=== PATIENT | male | born 1955 | race Caucasian/White ===

== ENCOUNTER 2018-10-15 20:32 | Emergency (ER) | payer MEDICARE, OTHER ==
[~2018-10-15] VITALS: Ht 172.7 cm; Wt 92.5 kg
[2018-10-15 20:51] LABS: BASOPHILS ABSOLUTE AUTO 0.08 K/mm3 (0.00-0.23); BASOPHILS PERCENT AUTO 1 % (0-2); EOSINOPHILS ABSOLUTE AUTO 0.28 K/mm3 (0.00-0.68); EOSINOPHILS PERCENT AUTO 2 % (0-6); Hematocrit 33.6 % (37.0-53.0); Hemoglobin 11.6 g/dL (13.5-17.5); IMMATURE GRAN ABSOLUTE AUTO 0.05 K/mm3 (0.00-0.10); IMMATURE GRAN PERCENT AUTO 0 % (0-1); LYMPHOCYTES ABSOLUTE AUTO 2.23 K/mm3 (0.84-5.20); LYMPHOCYTES PERCENT AUTO 17 % (21-46); MONOCYTES ABSOLUTE AUTO 0.91 K/mm3 (0.16-1.47); MONOCYTES PERCENT AUTO 7 % (4-13); Mean Corpuscular HGB 29.9 pg (26.0-34.0); Mean Corpuscular HGB Conc 34.5 g/dL (31.5-36.5); Mean Corpuscular Volume 87 fL (80-100); Mean Platelet Volume 9.9 fL (9.1-12.4); NEUTROPHILS ABSOLUTE AUTO 9.25 K/mm3 (1.96-9.15); NEUTROPHILS PERCENT AUTO 72 % (41-73); Platelet Count 308 K/mm3 (150-400); RDW Coefficient Variation 11.9 % (11.7-14.2); RDW Standard Deviation 37.7 fL (35.1-46.3); Red Blood Cell Count 3.88 M/mm3 (4.30-5.90)
[2018-10-15 21:17] LABS: Alanine Aminotransfer (ALT/SGP 14 U/L (12-78); Alk Phos 75 U/L (50-136); Anion Gap 5 mmol/L (6-16); Aspartate Aminotrans (AST/SGOT 8 U/L (12-37); Bilirubin, Total 0.6 mg/dL (0.1-1.0); Blood Urea Nitrogen 10 mg/dL (8-24); Bun/Creatinine Ratio 8.8 (12.0-20.0); CO2, Blood 28 mmol/L (21-32); Calcium, Blood 8.2 mg/dL (8.5-10.1); Chloride, Blood 109 mmol/L (98-108); Creatinine, Blood 1.14 mg/dL (0.60-1.20); Ethanol (Alcohol), Blood, Med <3 mg/dL; Globulin, Blood 2.9 g/dL (2.2-4.0); Glomerular Filtration Rate >60 (60-); Glucose, Blood 124 mg/dL (70-99); Potassium, Blood 3.3 mmol/L (3.5-5.5); Sodium, Blood 142 mmol/L (136-145); Total Protein, Blood 5.9 g/dL (6.4-8.2)
[2018-10-15 21:55] LABS: International Normalized Ratio 1.03; Prothrombin Time Results 10.9 Sec (9.7-11.5)
== END 2018-10-15 23:05 | disposition short-term general hospital (02) ==
LOC: ER 20:32
PROVIDERS: Emergency Medicine
DX: S61.512A Laceration without foreign body of left wrist, initial encounter (principal); S11.91XA Laceration without foreign body of unspecified part of neck, initial encounter; S51.012A Laceration without foreign body of left elbow, initial encounter; X78.0XXA Intentional self-harm by sharp glass, initial encounter; Z91.030 Bee allergy status; Z88.0 Allergy status to penicillin; Z88.8 Allergy status to other drugs, medicaments and biological substances; Z88.1 Allergy status to other antibiotic agents
CPT/HCPCS: 36430; 70498; 71045; 73206; 80053; 85025; 85610; 85730; 86850; 86900; 86901; 86920; 86923; 90471; 90714; 96365-59; 96367; 96376-59; 99285-25; G0480; J0690; J0696; J7030; J7120; P9016; Q9967

== ENCOUNTER 2019-10-20 20:50 | Emergency (ER) | payer OTHER, MEDICARE ==
[~2019-10-20] VITALS: Ht 172.7 cm; Wt 81.7 kg
[2019-10-20 21:32] LABS: BASOPHILS ABSOLUTE AUTO 0.04 K/mm3 (0.00-0.23); BASOPHILS PERCENT AUTO 1 % (0-2); EOSINOPHILS ABSOLUTE AUTO 0.18 K/mm3 (0.00-0.68); EOSINOPHILS PERCENT AUTO 2 % (0-6); Hematocrit 37.3 % (37.0-53.0); Hemoglobin 12.7 g/dL (13.5-17.5); IMMATURE GRAN ABSOLUTE AUTO 0.02 K/mm3 (0.00-0.10); IMMATURE GRAN PERCENT AUTO 0 % (0-1); LYMPHOCYTES ABSOLUTE AUTO 2.02 K/mm3 (0.84-5.20); LYMPHOCYTES PERCENT AUTO 25 % (21-46); MONOCYTES ABSOLUTE AUTO 0.46 K/mm3 (0.16-1.47); MONOCYTES PERCENT AUTO 6 % (4-13); Mean Corpuscular Volume 88 fL (80-100); Mean Platelet Volume 9.4 fL (9.1-12.4); NEUTROPHILS ABSOLUTE AUTO 5.39 K/mm3 (1.96-9.15); NEUTROPHILS PERCENT AUTO 67 % (41-73); Platelet Count 247 K/mm3 (150-400); RDW Coefficient Variation 12.3 % (11.7-14.2); RDW Standard Deviation 39.8 fL (35.1-46.3); Red Blood Cell Count 4.23 M/mm3 (4.30-5.90); White Blood Cell Count 8.11 K/mm3 (4.00-11.30)
[2019-10-20] MEDS ORDERED: Isosorbide Dini30 MG PO (21:40)
[2019-10-20] MEDS ORDERED: CLON.1 PO (21:41)
[2019-10-20] MEDS ORDERED: TAMS.4ER PO (21:42)
[2019-10-20] MEDS ORDERED: Felodipine ER5 MG PO (21:42)
[2019-10-20] MEDS ORDERED: LEVSOD75 PO (21:42)
[2019-10-20] MEDS ORDERED: LITH300C PO (21:43)
[2019-10-20] MEDS ORDERED: HALO5 PO (21:43)
[2019-10-20] MEDS ORDERED: LACT PO (21:43)
[2019-10-20] MEDS ORDERED: QUET200 PO (21:44)
[2019-10-20] MEDS ORDERED: FINA5 PO (21:44)
[2019-10-20] MEDS ORDERED: Benztropine Mesy1 MG (21:44)
[2019-10-20 21:50] LABS: Alanine Aminotransfer (ALT/SGP 16 U/L (12-78); Albumin, Blood 3.5 g/dL (3.4-5.0); Albumin/Globulin Ratio 1.2 (0.8-1.8); Alk Phos 85 U/L (50-136); Anion Gap 7 mmol/L (6-16); Aspartate Aminotrans (AST/SGOT 16 U/L (12-37); Bilirubin, Total 0.7 mg/dL (0.1-1.0); Blood Urea Nitrogen 7 mg/dL (8-24); Bun/Creatinine Ratio 7.6 (12.0-20.0); CO2, Blood 25 mmol/L (21-32); Calcium, Blood 8.3 mg/dL (8.5-10.1); Chloride, Blood 102 mmol/L (98-108); Creatinine, Blood 0.93 mg/dL (0.60-1.20); Ethanol (Alcohol), Blood, Med <3 mg/dL; Globulin, Blood 2.9 g/dL (2.2-4.0); Glomerular Filtration Rate >60 (60-); Glucose, Blood 92 mg/dL (70-99); Potassium, Blood 3.3 mmol/L (3.5-5.5); Sodium, Blood 134 mmol/L (136-145); Total Protein, Blood 6.4 g/dL (6.4-8.2)
[2019-10-20 21:51] LABS: International Normalized Ratio 1.04; Prothrombin Time Results 11.1 Sec (9.7-11.5)
[2019-10-20 23:22] LABS: Source, Urine Clean Catch
[2019-10-20 23:35] LABS: Bilirubin, Urine Neg (Neg); Blood, Urine Neg (Neg); Glucose Qualitative, Urine Neg (Neg); Ketones, Urine Neg (Neg); Leukocyte Esterase, Urine Neg (Neg); Nitrite, Urine Neg (Neg); Protein, Urine Neg (Neg); Specific Gravity, Urine 1.005 (1.003-1.022); Urobilinogen, Urine NORM (Normal)
[2019-10-20 23:36] LABS: Appearance, Urine Clear (Clear); Color, Urine Pale Yellow (P-Yellow)
[2019-10-20 23:37] LABS: U Amphetamine Screen Not Detected; U Barbituate Screen Not Detected; U Benzodiazapine Screen Not Detected; U Buprenorphine Screen Not Detected; U Cannabinoids Screen Not Detected; U Cocaine Screen Not Detected; U Methadone Screen Not Detected; U Methamphetamine Screen Not Detected; U Opiates Screen Not Detected; U Oxycodone Screen Not Detected; U Phencyclidine Screen Not Detected; U Propoxyphene Screen Not Detected
== END 2019-10-21 00:10 | disposition home or self-care (01) ==
LOC: ER 20:50
PROVIDERS: Physician Assistant
DX: R41.82 Altered mental status, unspecified (principal); Z88.0 Allergy status to penicillin; Z91.030 Bee allergy status; Z88.8 Allergy status to other drugs, medicaments and biological substances; Z79.899 Other long term (current) drug therapy; E11.40 Type 2 diabetes mellitus with diabetic neuropathy, unspecified; Z87.891 Personal history of nicotine dependence
CPT/HCPCS: 70450; 80053; 81003; 82947; 84484; 85025; 85610; 93005; 93010; 96360; 99285-25; G0480; J7030

== ENCOUNTER 2020-03-21 14:21 | Emergency (ER) | payer OTHER, MEDICARE ==
[~2020-03-21] VITALS: Ht 172.7 cm; Wt 74.8 kg
[~2020-03-21 14:21] MED LIST: Benztropine Mesy1 MG PO; CLON.1 PO; Felodipine ER5 MG PO; HALO5 PO; LITH300C PO; QUETIAPINE FUM400 M2 PO; TAMS.4ER PO
[2020-03-21] MEDS ORDERED: ZYRTEC10 M2 PO (14:42)
[2020-03-21] MEDS ORDERED: DOXEPIN HCL100 M1 PO (14:43)
[2020-03-21] MEDS ORDERED: HYDHCL25 PO (14:50)
[2020-03-21] MEDS ORDERED: Methocarbamol500 MG PO (14:51)
[2020-03-21] MEDS ORDERED: PSEUDOEPHEDRINE30 M1 PO (14:51)
[2020-03-21] MEDS ORDERED: Sulindac200 MG PO (14:52)
[2020-03-21 15:49] LABS: Source, Urine Catheter
[2020-03-21 15:52] LABS: Appearance, Urine Cloudy (Clear); Bilirubin, Urine Neg (Neg); Blood, Urine 4+ (Neg); Color, Urine Yellow (P-Yellow); Glucose Qualitative, Urine Neg (Neg); Ketones, Urine 1+ (Neg); Leukocyte Esterase, Urine 2+ (Neg); Nitrite, Urine Neg (Neg); Protein, Urine 3+ (Neg); Specific Gravity, Urine 1.015 (1.003-1.022); Urobilinogen, Urine 1+ (Normal)
[2020-03-21 16:20] LABS: Amorphous Heavy (0-Heavy); Bacteria Mod /hpf; Squamous Epithelial Cells Rare /hpf (Few)
== END 2020-03-21 16:37 | disposition home or self-care (01) ==
LOC: ER 14:21
PROVIDERS: Physician Assistant
DX: T83.84XA Pain due to genitourinary prosthetic devices, implants and grafts, initial encounter (principal); E11.40 Type 2 diabetes mellitus with diabetic neuropathy, unspecified; N40.0 Benign prostatic hyperplasia without lower urinary tract symptoms; E03.9 Hypothyroidism, unspecified; J45.909 Unspecified asthma, uncomplicated; F17.200 Nicotine dependence, unspecified, uncomplicated; Z79.899 Other long term (current) drug therapy
CPT/HCPCS: 81001; 87086; 99283-25

== ENCOUNTER 2020-04-07 09:54 | Inpatient (IN) | payer OTHER, MEDICARE ==
[~2020-04-07] VITALS: Ht 170.2 cm; Wt 77.1 kg
[~2020-04-07 09:54] MED LIST changes: +DOXEPIN HCL100 M1 PO; +HYDHCL25 PO; +Methocarbamol500 MG PO; +PSEUDOEPHEDRINE30 M1 PO; +Sulindac200 MG PO; +ZYRTEC10 M2 PO
[2020-04-07] MEDS ORDERED: LAMO100 PO (10:57)
[2020-04-07 10:59] LABS: BASOPHILS ABSOLUTE AUTO 0.04 K/mm3 (0.00-0.23); BASOPHILS PERCENT AUTO 1 % (0-2); EOSINOPHILS ABSOLUTE AUTO 0.18 K/mm3 (0.00-0.68); EOSINOPHILS PERCENT AUTO 2 % (0-6); Hematocrit 39.8 % (37.0-53.0); Hemoglobin 13.2 g/dL (13.5-17.5); IMMATURE GRAN ABSOLUTE AUTO 0.07 K/mm3 (0.00-0.10); IMMATURE GRAN PERCENT AUTO 1 % (0-1); LYMPHOCYTES ABSOLUTE AUTO 1.37 K/mm3 (0.84-5.20); LYMPHOCYTES PERCENT AUTO 16 % (21-46); MONOCYTES ABSOLUTE AUTO 0.54 K/mm3 (0.16-1.47); MONOCYTES PERCENT AUTO 6 % (4-13); Mean Corpuscular HGB 30.2 pg (26.0-34.0); Mean Corpuscular HGB Conc 33.2 g/dL (31.5-36.5); Mean Corpuscular Volume 91 fL (80-100); Mean Platelet Volume 9.7 fL (9.1-12.4); NEUTROPHILS ABSOLUTE AUTO 6.26 K/mm3 (1.96-9.15); NEUTROPHILS PERCENT AUTO 74 % (41-73); Platelet Count 292 K/mm3 (150-400); RDW Coefficient Variation 11.8 % (11.7-14.2); RDW Standard Deviation 40.1 fL (35.1-46.3); Red Blood Cell Count 4.37 M/mm3 (4.30-5.90); White Blood Cell Count 8.46 K/mm3 (4.00-11.30)
[2020-04-07 11:13] LABS: Alanine Aminotransfer (ALT/SGP 15 U/L (12-78); Albumin, Blood 3.3 g/dL (3.4-5.0); Albumin/Globulin Ratio 0.8 (0.8-1.8); Alk Phos 103 U/L (50-136); Anion Gap 7 mmol/L (6-16); Aspartate Aminotrans (AST/SGOT 7 U/L (12-37); Bilirubin, Total 0.4 mg/dL (0.1-1.0); Blood Urea Nitrogen 10 mg/dL (8-24); Bun/Creatinine Ratio 10.8 (12.0-20.0); CO2, Blood 26 mmol/L (21-32); Calcium, Blood 8.9 mg/dL (8.5-10.1); Chloride, Blood 108 mmol/L (98-108); Creatinine, Blood 0.93 mg/dL (0.60-1.20); Ethanol (Alcohol), Blood, Med <3 mg/dL; Glomerular Filtration Rate >60 (60-); Glucose, Blood 148 mg/dL (70-99); Potassium, Blood 3.5 mmol/L (3.5-5.5); Sodium, Blood 141 mmol/L (136-145); Total Protein, Blood 7.3 g/dL (6.4-8.2)
[2020-04-07 11:58] LABS: Lithium 0.78 mmol/L (0.60-1.20)
[2020-04-07 12:02] LABS: Free Thyroxine 1.49 ng/dL (0.70-1.60); Thyroid Stimulating Hormone 1.04 uIU/mL (0.360-4.800)
[2020-04-07 12:16] LABS: Source, Urine Clean Catch
[2020-04-07 12:32] LABS: Appearance, Urine Hazy (Clear); Bilirubin, Urine Neg (Neg); Blood, Urine 3+ (Neg); Color, Urine Yellow (P-Yellow); Glucose Qualitative, Urine Neg (Neg); Ketones, Urine Neg (Neg); Leukocyte Esterase, Urine 3+ (Neg); Nitrite, Urine Neg (Neg); Protein, Urine 3+ (Neg); Urobilinogen, Urine NORM (Normal)
[2020-04-07 12:47] LABS: White Blood Cells, Urine TNTC /hpf (0-5)
[2020-04-07 12:48] LABS: Bacteria Many /hpf; Squamous Epithelial Cells Few /hpf (Few); Transitional Epithelial Cells Few /hpf (0-Rare)
[2020-04-07 12:56] LABS: U Amphetamine Screen Not Detected; U Barbituate Screen Not Detected; U Benzodiazapine Screen Not Detected; U Buprenorphine Screen Not Detected; U Cannabinoids Screen Not Detected; U Cocaine Screen Not Detected; U Methadone Screen Not Detected; U Methamphetamine Screen Not Detected; U Opiates Screen Not Detected; U Oxycodone Screen Not Detected; U Phencyclidine Screen Not Detected; U Propoxyphene Screen Not Detected
[2020-04-07 13:52] LABS: Influenza A, PCR Negative (NEGATIVE); Influenza B, PCR Negative (NEGATIVE); Resp Syncytial Virus, PCR Negative (NEGATIVE); SARS-Cov-2 (COVID-19) PCR, MMC Negative (NEGATIVE)
[2020-04-07] MEDS ORDERED: LACT PO (14:10)
[2020-04-07] MEDS ORDERED: MELA3 PO (14:11)
--- NOTE | 2020-04-07 18:54 | NUR ---
ASSUMED CARE, END OF SHIFT PT ARRIVED TO PCU FROM ER AT APPROXIMATELY 1730. PT IS UNRESPONSIVE, PUPILS DILATED SOME NYSTAGMUS. PT WAS ADMITTED FOR DRUG OVERDOSE AND IS CURRENTLY IN AN SI PREPPED ROOM WITH A SITTER. PT HAS BICARB WITH K+ AND DEXTROSE RUNNING AT 125ML/HR PER ER REPORT AND RECOMMENDATION ON POISON CONTROL. PT VOMITTED SOON AFTER ARRIVING TO PCU AND A NEW IV WAS STARTED IN THE RIGHT UPPER ARM TO ALLOW FOR A PHENERGRAN INFUSION. PT IS UNABLE TO ANSWER QUESTIONS REGARDING HEALTH HISTORY, HOME MED REC WAS COMPLETED BASED ON A LIST PROVIDED BY EMPLOYEES AT HIS [employer] ROOM AND BOARD. PT IS VERY RIGID, VS STABLE, PT ON RA. PT HAS CHRONIC DELUCA THAT WAS REPLACED IN ED AND IS DRAINING CLEAR/YELLOW URINE
--- NOTE | 2020-04-07 23:14 | NUR ---
POISON CONTROL POISON CALLED AT APPROX 2240 REQUESTING PT UPDATE. NOTIFIED POISON CONTROL BICARB INFUSION WAS ORDERED ONE TIME BAG. POISON CONTROL RECOMMENDED CONTINUOUS INFUSION UNTIL MORNING D/T WIDENING QRS W/ EKG IN THE AM WITH INFUSION RUNNING TO DETERMINE IF READY TO D/C. POISON CONTROL ALSO RECOMMENDED LABS DRAWN (VBG, ACETAMINOPHEN, ASPIRIN). CALL PLACED TO MAYRA DUPONT AT APPROX 2300. MAYRA DUPONT W/ ORDERS FOR EKG NOW TO DETERMINE WHETHER TO RESTART BICARB DRIP, WELL ACETAMINOPHEN LAB AND ASPIRIN LABS TO BE DRAWN.
--- NOTE | 2020-04-07 23:45 | NUR ---
PT UPDATE PT EKG DONE, SHOWED QRS OF 98 MS. NOTIFIED MAYRA MCGEE OF RESULTS. MAYRA MCGEE W/ ORDERS FOR NS INFUSION AND EKG IN AM. MAYRA MCGEE ALSO WITH ORDERS FOR CK LAB PER POISON CONTROL RECOMMENDATION. MAYRA MCGEE REQUESTED THIS RN TO NOTIFY POISON CONTROL THAT BICARB DRIP WAS D/C AND IF THEY STILL RECOMMEND VBG LAB FOR PH LEVEL. CALL PLACED TO POISON CONTROL AT 2345, DORENE, WHO WAS ON ANOTHER LINE AND WILL RETURN CALL.
[2020-04-07 23:54] LABS: Salicylate 3.5 mg/dL (2.8-20.0)
[2020-04-07 23:56] LABS: Acetaminophen, Random <2.0 ug/mL (10.0-30.0)
[2020-04-08 00:08] LABS: CPK Creatine Kinase 50 U/L (39-308)
[2020-04-08 00:10] LABS: Creatine Kinase MB <1.0 ng/mL (0.0-3.6); Creatine Kinase MB Index Unable to Calculate (0.0-4.0)
--- NOTE | 2020-04-08 02:11 | NUR ---
PT UPDATE DORENE FROM POISON CONTROL CALLED. NOTIFIED DORENE OF EKG RESULTS. POISON CONTROL DID NOT RECOMMENED A VBG LAB. THEY DID RECOMMENED A REPEAT EKG IN AM WELL A REPEAT ASPIRIN LEVEL LAB IN AM.
[2020-04-08 04:20] LABS: BASOPHILS ABSOLUTE AUTO 0.03 K/mm3 (0.00-0.23); BASOPHILS PERCENT AUTO 0 % (0-2); EOSINOPHILS ABSOLUTE AUTO 0.04 K/mm3 (0.00-0.68); EOSINOPHILS PERCENT AUTO 0 % (0-6); Hematocrit 40.6 % (37.0-53.0); Hemoglobin 13.4 g/dL (13.5-17.5); IMMATURE GRAN ABSOLUTE AUTO 0.04 K/mm3 (0.00-0.10); IMMATURE GRAN PERCENT AUTO 0 % (0-1); LYMPHOCYTES ABSOLUTE AUTO 0.87 K/mm3 (0.84-5.20); LYMPHOCYTES PERCENT AUTO 8 % (21-46); MONOCYTES ABSOLUTE AUTO 0.75 K/mm3 (0.16-1.47); MONOCYTES PERCENT AUTO 7 % (4-13); Mean Corpuscular HGB 29.6 pg (26.0-34.0); Mean Corpuscular Volume 90 fL (80-100); Mean Platelet Volume 9.4 fL (9.1-12.4); NEUTROPHILS ABSOLUTE AUTO 9.12 K/mm3 (1.96-9.15); NEUTROPHILS PERCENT AUTO 84 % (41-73); Platelet Count 318 K/mm3 (150-400); RDW Coefficient Variation 11.7 % (11.7-14.2); RDW Standard Deviation 38.8 fL (35.1-46.3); Red Blood Cell Count 4.52 M/mm3 (4.30-5.90); White Blood Cell Count 10.85 K/mm3 (4.00-11.30)
[2020-04-08 04:55] LABS: Alanine Aminotransfer (ALT/SGP 15 U/L (12-78); Albumin, Blood 3.3 g/dL (3.4-5.0); Albumin/Globulin Ratio 0.8 (0.8-1.8); Alk Phos 108 U/L (50-136); Anion Gap 4 mmol/L (6-16); Aspartate Aminotrans (AST/SGOT 9 U/L (12-37); Bilirubin, Total 0.6 mg/dL (0.1-1.0); Blood Urea Nitrogen 6 mg/dL (8-24); Bun/Creatinine Ratio 7.1 (12.0-20.0); CO2, Blood 30 mmol/L (21-32); Calcium, Blood 9.2 mg/dL (8.5-10.1); Chloride, Blood 111 mmol/L (98-108); Creatinine, Blood 0.85 mg/dL (0.60-1.20); Globulin, Blood 4.2 g/dL (2.2-4.0); Glomerular Filtration Rate >60 (60-); Glucose, Blood 107 mg/dL (70-99); Potassium, Blood 3.7 mmol/L (3.5-5.5); Sodium, Blood 145 mmol/L (136-145); Total Protein, Blood 7.5 g/dL (6.4-8.2)
--- NOTE | 2020-04-08 05:55 | NUR ---
SHIFT SUMMARY PT ALERT, AGITATED THIS SHIFT. DOES NOT FOLLOW COMMANDS OR VERBALLY COMMUNICATE. PT WAS ABLE TO SQUEEZE FINGERS W/ BOTH HANDS SPONTANEOUSLY. SP02>92% ON RA. TELEMETRY READS SR, HR 70'S. DELUCA CATHETER DRAINING TO GRAVITY. PT PULLED AT CORDS MULTIPLE TIMES DURING SHIFT, TELE CORDS, SP02 CORDS, DELUCA CATHETER. MEDICATED W/ ATIVAN X3 THIS SHIFT. SITTER IN ROOM, VOCERED FOR NURSES MULTIPLE TIMES DURING SHIFT D/T PT BEING AGITATED, MOVING AROUND IN BED, HANGING LEGS OVER RAILS, PULLING AT CORDS. REPOSITIONED PT AT PUT CALMING MUSIC ON TV, SEEMED TO HELP PT SOME. WILL GIVE REPORT TO ONCOMING SHIFT.
--- NOTE | 2020-04-08 08:01 | NUR ---
PT WITH AMS, DOES NOT RESPOND MEANINGFULLY, PT IS EDUCATED REGARDLESS OF ABILITY TO PARTICIPATE. PT LOOKS TO VERBAL STIMULI WHEN SPOKEN TO BUT DOES NOT INTERACT.
--- NOTE | 2020-04-08 10:04 | NUR ---
UNABLE TO PEFORM BEDISDE SWALLOW STUDY PT WAS UNABLE TO SWALLOW LIQUID FROM THE ORAL SWABS, PT WILLNOT BE ABLE TO PROTECT HIS AIRWAY TO ADMINISTER PO MEDICATIONS
--- NOTE | 2020-04-08 18:14 | NUR ---
SHIFT NOTE PT WITH CONTINUOUS SITTER AND CAMERA MONITORING. PT WITH AMS, RESPONDS WITH PURPOSEFUL ANSWERS THAT ARE GROSSLY GARBLED. PERRLA, SLUGGISH REACTION, PUPILS 6MM. PT WITH SPASTIC MOVEMENTS, WEAK IN ALL EXTREMETIES. DR PASTRANA HAS BEEN IN TO SEE THE PT TODAY WAS NOT ABLE TO EVALUATE. POISON CONTROL IS UPDATED T/O THE DAY.
--- NOTE | 2020-04-08 20:06 | NUR ---
UPDATE VERIFIED WITH REMOTE MONITORING THAT CAMERA IS ON IN ROOM. SITTER AT BEDSIDE.
[2020-04-09 04:01] LABS: Alanine Aminotransfer (ALT/SGP 15 U/L (12-78); Albumin, Blood 3.3 g/dL (3.4-5.0); Albumin/Globulin Ratio 0.8 (0.8-1.8); Alk Phos 108 U/L (50-136); Anion Gap 6 mmol/L (6-16); Aspartate Aminotrans (AST/SGOT 15 U/L (12-37); Bilirubin, Total 0.4 mg/dL (0.1-1.0); Blood Urea Nitrogen 10 mg/dL (8-24); Bun/Creatinine Ratio 9.5 (12.0-20.0); CO2, Blood 28 mmol/L (21-32); Calcium, Blood 9.3 mg/dL (8.5-10.1); Chloride, Blood 116 mmol/L (98-108); Creatinine, Blood 1.05 mg/dL (0.60-1.20); Globulin, Blood 3.9 g/dL (2.2-4.0); Glomerular Filtration Rate >60 (60-); Glucose, Blood 82 mg/dL (70-99); Potassium, Blood 3.9 mmol/L (3.5-5.5); Sodium, Blood 150 mmol/L (136-145); Total Protein, Blood 7.2 g/dL (6.4-8.2)
--- NOTE | 2020-04-09 07:43 | NUR ---
SHIFT SUMMARY PATIENT NON-VERBAL THROUGHOUT THE NIGHT. HOWEVER, PATIENT DID GRUNT OCCATIONALLY WHEN BEING SPOKEN TOO. PATIENT ALSO SWUNG HIS ARM WITH HIS WRISTBAND ON IT TWARDS STAFF WHEN THEY STATED THEY WERE GOING TO SCAN HIS WRISTBAND, IN WHAT APPEARED TO BE AN ATTEMPT AT MOVING HIS ARM TWARDS STAFF TO HELP THEM SCAN HIS WRISTBAND. PATIENT WOULD ALSO MAKE EYE CONTACT WHEN BEING SPOKEN TOO AT TIMES. PATIENT MEDICATED FOR RESTLESSNESS AND SOME AGITATION PER EMAR. PATIENT'S ARMS AND LEGS APPEARED TO HAVE FREQUENT SPASTIC MOVMENTS. ORAL CARE PROVIDED SEVERAL TIMES TO PATIENT. PATIENT TURNED FREQUENTLY, ONE TO ONE SITTER IN ROOM THROUGHOUT THE NIGHT, CAMERA ON IN ROOM. PATIENT APPEARED TO NAP OCCATIONALLY LAST NIGHT. REPORT GIVEN TO ONCOMING RN.
--- NOTE | 2020-04-09 10:53 | NUR ---
No Safety Plan completed yet. Visited patient at 1000 this morning. He is not oriented or communicating verbally and unable to participate in an interview. Melinda Holguin M.Ed., [facility], Behavior Health Director
--- NOTE | 2020-04-09 18:05 | NUR ---
SHIFT NOTE THIS EVENING PT BEGAN WITH FEVER OF 100.5, TREATED WITH TYLENOL DC, TEMP CONTINUED TO CLIMB INTO 101s DESPITE TYLENOL ADMINISTRATION. PT BEGN TO HAVE TWITCHING OF JAW AT THE TIME THAT FEVER BEGAN, PT WAS GIVEN ATIVAN 2MG IVP WITH NO RESOLUTION OF JAW TWITCHING. DR BERGERON CALLED WITH CONCERNS, NEW ORDERS OBTAINED FOR ROCEPHIN, BLOOD AND URINE CULTURES. BLOOD AND URINE SENT TO LAB. AWAITING ROCEPHIN FROM PHARMACY. AT THE TIME OF THIS NOTE PT'S TEMP 99.4 PER RECTAL TEMP
--- NOTE | 2020-04-09 20:23 | NUR ---
CAMERA ON VERIFIED WITH REMOTE MONITORING THAT CAMERA IS ON IN PCU 8.
--- NOTE | 2020-04-10 01:48 | NUR ---
SUICIDE REASSESSMENT UPDATE SUICIDE REASSESSMENT CONTINUES TO PLACE PATIENT IN THE HIGH RISK CATEGORY. HOWEVER, PATIENT HAS BEEN EVALUATED BY DR PASTRANA WHO DETERMINED THE PATIENT TO BE A MODERATE RISK DUE TO PATIENTS CURRENT CAPABILITIES AND INABILITY TO TO CONTROL HIS MOVEMENTS WELL AT THIS TIME. AN ORDER FOR MODERATE RISK CURRENTLY IN PATIENTS CHART. REMOTE MONITORING CONTINUOUSLY OBSERVING PATIENT VIA THE CAMERA IN ROOM. PATIENT BEING FREQUENTLY ROUNDED ON BY STAFF.
[2020-04-10 04:24] LABS: BASOPHILS ABSOLUTE AUTO 0.05 K/mm3 (0.00-0.23); BASOPHILS PERCENT AUTO 1 % (0-2); EOSINOPHILS ABSOLUTE AUTO 0.19 K/mm3 (0.00-0.68); EOSINOPHILS PERCENT AUTO 2 % (0-6); Hematocrit 40.9 % (37.0-53.0); IMMATURE GRAN ABSOLUTE AUTO 0.02 K/mm3 (0.00-0.10); IMMATURE GRAN PERCENT AUTO 0 % (0-1); LYMPHOCYTES ABSOLUTE AUTO 1.45 K/mm3 (0.84-5.20); LYMPHOCYTES PERCENT AUTO 18 % (21-46); MONOCYTES ABSOLUTE AUTO 0.66 K/mm3 (0.16-1.47); MONOCYTES PERCENT AUTO 8 % (4-13); Mean Corpuscular HGB 29.6 pg (26.0-34.0); Mean Corpuscular HGB Conc 31.8 g/dL (31.5-36.5); Mean Corpuscular Volume 93 fL (80-100); Mean Platelet Volume 9.3 fL (9.1-12.4); NEUTROPHILS ABSOLUTE AUTO 5.66 K/mm3 (1.96-9.15); NEUTROPHILS PERCENT AUTO 71 % (41-73); Platelet Count 305 K/mm3 (150-400); RDW Coefficient Variation 11.7 % (11.7-14.2); RDW Standard Deviation 39.9 fL (35.1-46.3); Red Blood Cell Count 4.39 M/mm3 (4.30-5.90); White Blood Cell Count 8.03 K/mm3 (4.00-11.30)
[2020-04-10 04:47] LABS: Alanine Aminotransfer (ALT/SGP 15 U/L (12-78); Albumin, Blood 3.1 g/dL (3.4-5.0); Albumin/Globulin Ratio 0.8 (0.8-1.8); Alk Phos 105 U/L (50-136); Anion Gap 7 mmol/L (6-16); Aspartate Aminotrans (AST/SGOT 23 U/L (12-37); Bilirubin, Total 0.5 mg/dL (0.1-1.0); Blood Urea Nitrogen 15 mg/dL (8-24); Bun/Creatinine Ratio 16.2 (12.0-20.0); CO2, Blood 27 mmol/L (21-32); Calcium, Blood 9.3 mg/dL (8.5-10.1); Chloride, Blood 115 mmol/L (98-108); Creatinine, Blood 0.93 mg/dL (0.60-1.20); Globulin, Blood 4.1 g/dL (2.2-4.0); Glomerular Filtration Rate >60 (60-); Glucose, Blood 86 mg/dL (70-99); Potassium, Blood 3.5 mmol/L (3.5-5.5); Sodium, Blood 149 mmol/L (136-145); Total Protein, Blood 7.2 g/dL (6.4-8.2)
--- NOTE | 2020-04-10 07:48 | NUR ---
SHIFT SUMMARY PATIENT APPEARED TO SLEEP WELL THROUGHOUT THE FIRST HALF OF THE NIGHT. PATIENT THEN STARTED TO BECOME MORE AGITATED. PATIENT ALSO STARTED PULLING AT IV LINES AND TELE EVEN AFTER ATTEMPTS WERE MADE TO HIDE LINES. PATIENT MEDICATED FOR AGITATION PER EMAR. PATIENT APPEARED TO BE ABLE TO MOVE SELF ABOUT IN BED WELL, TURNNING SELF FREQUENTLY IN BED. PATIENT MORE VERBAL THIS MORNING, PATIENT STATED "YES" MANY TIMES, HOWEVER PATIENT DID NOT ALWAYS APPEAR TO BE ANSWERING APPROPRIATELY. PATIENT CONTINUES TO BE AWAKE AND FIDGETY THIS MORNING. IV FLUIDS GIVEN PER EMAR. REPORT GIVEN TO ONCOMING RN.
--- NOTE | 2020-04-10 19:00 | NUR ---
SHIFT NOTE PT HAS BEEN MORE ALERT AND RESPONSIVE THIS SHIFT. DOES ANSWER WITH 2 WORD SENTENCES SEVERAL TIMES TODAY. PT'S SISTER ANGELITA WAS UPDATED ON PROGRESS. PT ALERT, AWAKENS EASILY TO VERBAL STIMULI. VSS. EVEN CHEMBG WAS 67 DR BERGERON CALLED FOR D5% c 1/2 NS c 20KCL ORDERED WHICH IS INFUSING AT 75ML/HR AT THIS TIME. NADN. PT REMAINS ON CAMERA MONITORING.
--- NOTE | 2020-04-10 22:46 | NUR ---
ASSUMED CARE OF PATIENT AT APPROXIMATELY 1915 FROM DARRION Lott RN. PATIENT ALERT AT TIMES AND LETHARGIC AT TIMES. PATIENT ANSWERS YES OR NO TO SOME QUESTIONS; FOLLOWS COMMANDS AT TIMES; MODERATE SI PRECAUTIONS IN PLACE; PATIENT FALL RISK. PATIENT DENIES PAIN, DIZZINESS OR NAUSEA. PATIENT GRABS URINARY CATHETER AT TIMES. NSR ON TELE; OXYGEN SATURATION ABOVE 90% ON ROOM AIR. IVF INFUSING PER ORDER. CAMERA IN ROOM OBSERVING PATIENT. PATIENT CURRENTLY RESTING IN BED; CALL LIGHT IN REACH; BED IN LOWEST POSISTION; BED ALARM ON.
[2020-04-11 04:29] LABS: Anion Gap 5 mmol/L (6-16); Blood Urea Nitrogen 18 mg/dL (8-24); Bun/Creatinine Ratio 20.2 (12.0-20.0); CO2, Blood 29 mmol/L (21-32); Calcium, Blood 9.3 mg/dL (8.5-10.1); Chloride, Blood 115 mmol/L (98-108); Creatinine, Blood 0.89 mg/dL (0.60-1.20); Glomerular Filtration Rate >60 (60-); Glucose, Blood 83 mg/dL (70-99); Potassium, Blood 3.3 mmol/L (3.5-5.5); Sodium, Blood 149 mmol/L (136-145)
--- NOTE | 2020-04-11 06:30 | NUR ---
PATIENT SLEPT ABOUT SIX HOURS LAST NIGHT. VSS. AGITATED T/O NIGHT;
--- NOTE | 2020-04-11 10:41 | NUR ---
PT ALERT TO SELF ONLY ABLE TO STATE NAME AND , MUMBLES WHEN TALKING, CONFUSED AND AGITATED WITH MULTIPLE ATTEMPTS OF TRYING TO GET OUT OF BED ATIVAN 2MG X1 DOSE GIVEN AND HALDOL PO 5MG, NOT YET EFFECTIVE AT THIS TIME, PT WAS ASSISTED TO RECLINER WITH VARUN VEST ON STILL ATTEMPTING TO STAND AND GET OUT OF THE CHAIR, DR BERGERON WAS IN PT ROOM AWARE OF PT'S CURRENT SITUATION. NOTICE SOME HALLUCINATIONS PT WAS TRYING TO FEED HIMSELF WITH ANYTHING THAT HE HOLDS, DIET RESTARTED TODAY FULL LIQUID PT WAS ABLE TO TOLERATE THIN LIQUIDS WITHOUT ASPIRATING AND APPLESAUCE. PT CONTINUES ON CAMERA MONITORING, FREQUENT ROOM CHECKS, CHAIR ALARM ON. WILL CONTINUE TO MONITOR PT UNTIL END OF SHIFT OR IF ANYTHING CHANGES.
--- NOTE | 2020-04-11 18:49 | NUR ---
PT SUMMARY: SEE PREVIOUS NOTES: PT REMAINS ON VARUN VEST, STILL CONFUSED AND IS ATTEMPTING TO GET OUT OF BED, NON REDIRECTABLE. VITALS HAS BEE STABLE, REMAINS ON CAMERA MONITORING, BED ALARM ON FOR SAFETY. TPN STARTED TODAY AT 96MLS/HR, D51/4NS WITH 20,MEQ K DC'D. PT WAS UP IN THE RECLINER AT LUNCH TIME, WAS GIVEN X2 DOSE OF ATIVAN 2MG AND 5MG HALDOL. PT WAS ABLE TO DRINK A BOX OF GLUCERNA AND 25% ON HIS DINNER, ALSO HAD AN EXTRA LARGE HARD BM FELT A LOT BETTER AFTER. NO OTHER ISSUES ENCOUNTERED FOR THE SHIFT, AWAITING FOR DR PASCUAL TO RE-EVALUATE PT SINCE HE'S MORE ALERT COMPARE TO YESTERDAY. PT NOW RESTING IN BED CALL LIGHTS IN REACH WILL MONIOR UNTIL END OF SHIFT
--- NOTE | 2020-04-12 04:15 | NUR ---
SHIFT SUMMARY PT HAS IMPROVED SIGNIFICANTLY OVERNIGHT. PT SLEPT FOR A GOOD PORTION OF THE SHIFT. VARUN VEST REMOVED PT WAS COOOPERATIVE WITH CARE AND NO LONGER ATTEMPTING TO GET OOB. PT VERY LETHARGIC AT THE START OF THE SHIFT, AWAKING TO VERBAL STIMULI BUT QUICKLY FALLING BACK TO SLEEP. PT IS AWAKE AND ALERT THIS MORNING, HE IS ANSWERING MOST OF MY QUESTIONS APPROPRIATELY, AND MAKING EYE CONTACT. HYPERTENSIVE, BUT WITHIN PT TRENDING SINCE ADMISSION. NO COVERAGE WITH HYDRALYZINE WITH PARAMETERS SET. CALL LIGHT WITHIN REACH. PT INSTRUCTED AGAIN ON USE. BED IN LOWEST POSITION, BED ALARM IN PLACE.
[2020-04-12 04:39] LABS: Anion Gap 4 mmol/L (6-16); Blood Urea Nitrogen 20 mg/dL (8-24); Bun/Creatinine Ratio 25.5 (12.0-20.0); CO2, Blood 30 mmol/L (21-32); Chloride, Blood 112 mmol/L (98-108); Creatinine, Blood 0.79 mg/dL (0.60-1.20); Glomerular Filtration Rate >60 (60-); Glucose, Blood 87 mg/dL (70-99); Magnesium, Blood 2.3 mg/dL (1.6-2.4); Phosphorus, Blood 3.9 mg/dL (2.5-4.9); Potassium, Blood 3.4 mmol/L (3.5-5.5); Sodium, Blood 146 mmol/L (136-145); Triglycerides 108 mg/dL (30-160)
--- NOTE | 2020-04-12 17:41 | NUR ---
PT SUMMARY: PT WAS MORE ALERT AND ORIENTED AT BASELINE TODAY, CONVERSIVE AND TALKING TO STAFF, PT DOES NOT RECALL HIS STAY IN THE HOSPITAL FOR [place] LAST 5 DAYS BUT REMEMBERS THAT HE TOOK [facility] AND AMBULANCE TOOK HIM IN THE HOSPITAL, PT STATED HE FELT KIND OF ALONE AND MISSES FAMILY IN [place], PT HAS HX OF SUICIDE ATTEMPTS IN THE PAST. PT STATED IT WAS SELFISH OF HIM AND IS NOT THINKING OF DOING ANY HARM OR SUICIDE AT THIS TIME. PT STILL AT MOD RISK FOR SI, WILL RE-EVALUATE TOMORROW BY DR PASCUAL. PT HAS BEEN GETTING UP TO BSC 1PA, FEELS WEAK/WOBBLY PT/OT ORDERED, CHAIR/BED ALARM ON FOR SAFETY PT WAS INSTRUCTED TO USE CALL LIGHTS FOR HELP, PT HAS BEEN COOPERATIVE. PT REMAINS ON CAMERA MONITORING, REQUESTED TO MAKE PHONE CALL AND TALK TO HER SISTER ANGELITA 5 MINS SUPERVISED PHONE CALL WAS DONE FOR THE SHIFT OKAY PER CHARGE NURSE. PT DIET WAS RESUMED TO REGULAR, PT HAS BEEN EATING WITHOUT ANY ISSUES, TPN DC'D FOR THE SHIFT, PT IN BED EATING DINNER CALL LIGHTS IN REACH, WILL MONITOR UNTIL END OF SHIFT
--- NOTE | 2020-04-13 04:54 | NUR ---
SHIFT SUMMARY PATIENT IS ALERT, ORIENTED AND COOPERATIVE WITH CARE. PATIENT SITTING UP IN RECLINER AT BEGINNING OF SHIFT AND IS A 1 PERSON TRANSFER TO BSC AND INTO BED. REPOSITONS SELF WELL IN BED. PATIENT ON MODERATE RISK FOR SI, PATIENT STATED HE DID NOT HAVE ANY THOUGHTS ABOUT HURTING HIMSELF. PATIENT ALSO STATED HE STILL FEELS WEAK AND LOOKS FORWARD TO WORKING WITH PT/OT TODAY. PATIENT SLEPT MOST THE NIGHT, SAT UP IN BED TO EAT JELLO AT ONE POINT. PATIENT IS ON CAMERA. VSS, NO ACUTE CHANGES. CALL LIGHT IN REACH.
[2020-04-13 05:38] LABS: Anion Gap 7 mmol/L (6-16); Blood Urea Nitrogen 15 mg/dL (8-24); Bun/Creatinine Ratio 19.3 (12.0-20.0); CO2, Blood 27 mmol/L (21-32); Calcium, Blood 8.4 mg/dL (8.5-10.1); Chloride, Blood 106 mmol/L (98-108); Creatinine, Blood 0.78 mg/dL (0.60-1.20); Glomerular Filtration Rate >60 (60-); Glucose, Blood 96 mg/dL (70-99); Magnesium, Blood 1.9 mg/dL (1.6-2.4); Phosphorus, Blood 3.5 mg/dL (2.5-4.9); Potassium, Blood 3.2 mmol/L (3.5-5.5); Sodium, Blood 140 mmol/L (136-145)
--- NOTE | 2020-04-13 17:10 | NUR ---
PT SUMMARY: PT HAS BEEN PLEASANT AND COOPERATIVE, ALERT AND ORIENTED AT BASELINE. DR PASCUAL RE-EVALUATE PT TODAY AND IS NOW ON LOW RISK FOR SI PRECAUTIONS. PT HAS BEEN WORKING WITH PT TODAY AMBULATE ABOUT 240 FT VIA WALKER, NO ISSUES. PT REMAINS ON CAMERA MONITORING, HAD 5 MINS SUPERVISED CALL. PT TO DC IN AM IF STABLE DR PASCUAL TO SEE PT BEFORE DISCHARGE. TALKED TO DR BERGERON ABOUT PT'S CATHETER, PT HAD CHRONIC DELUCA FOR ABOUT A MONTH NOW PER PT DUE TO HEMATURIA AND RETENTION, TO KEEP CATHETER IN PLACE UNTIL PT SEES A UROLOGIST REGARDING BPH. PT AHD NAUSEA THIA AM PHENERGAN GIVEN AND WAS EFFECTIVE, NO OTHER ISSUES ENCOUNTERED FOR THE SHIFT, VITALS STABLE. WILL MONITOR UNTIL END OF SHIFT
[2020-04-14 05:02] LABS: Magnesium, Blood 1.8 mg/dL (1.6-2.4); Phosphorus, Blood 3.5 mg/dL (2.5-4.9)
--- NOTE | 2020-04-14 05:05 | NUR ---
SHIFT SUMMARY PATIENT ALERT AND ORIENTED, CAN NOT REMEMBER MUCH OF HIS HOSPITAL STAY UP UNTIL ABOUT YESTERDAY. PATIENT DENIED ANY THOUGHTS OF HARMING HIMSELF OR OTHERS. PATIENT REMIANED ON CAMERA. SLEPT MOST THE NIGHT. REPOSITIONS SELF IN BED. 02 SATS >95% ON RA. VSS, NO ACUTE CHANGES. CALL LIGHT IN REACH.
--- NOTE | 2020-04-14 11:42 | NUR ---
Spiritual care visit conducted. Patient is sitting on a chair and alert. Patient tells me about his suicide attempt and the thoughts that led to his despair. We talk about his bahai beliefs and what he has gained from his [employer] sisi and what he still may gain from it. Patient refects on great memories of worship attendance and the light that he felt in his thoughts and emotions. We talked about possible churches that he might attend that could address the hope and inspiration he is looking for. I provide therapeutic listening, pastoral anger control counselor and prayer. I also gave patient some inspirational reading material. Pateint responds well and shows of improved hope and new resolve for life.
--- NOTE | 2020-04-14 14:47 | NUR ---
DISCHARGE SUMMARY PT A&Ox3; CALM AND COOPERAIVE WITH CARE. PT DENIES ANY SUICIDAL IDEATIONS AND NOT HAVING THOUGHTS OF HARMING HIMSELF. PT DENIES PAIN, CHEST PAIN, SOB, NAUSEA AND DIZZINESS/LIGHTHEADEDNESS. VSS. NO OTHER ACUTE CHANGES NOTED DURING SHIFT. PT EDUCATED BY CHEMICAL OPERATIONS SPECIALIST RUSS AND DISCHARGE TO THE CLUBULSTER AT 1309 VIA WHEELCHAIR
== END 2020-04-14 13:03 | disposition home or self-care (01) | DRG 917 ==
LOC: ER 09:54 → PCU 15:00
PROVIDERS: Emergency Medicine; Nurse Practitioner Acute Care; ADMIT Internal Medicine
DX: T42.6X2A Poisoning by other antiepileptic and sedative-hypnotic drugs, intentional self-harm, initial encounter (principal); G92 Toxic encephalopathy; T83.511A Infection and inflammatory reaction due to indwelling urethral catheter, initial encounter; E87.0 Hyperosmolality and hypernatremia; N39.0 Urinary tract infection, site not specified; F32.2 Major depressive disorder, single episode, severe without psychotic features; E11.40 Type 2 diabetes mellitus with diabetic neuropathy, unspecified; F17.210 Nicotine dependence, cigarettes, uncomplicated; E03.9 Hypothyroidism, unspecified; I10 Essential (primary) hypertension; Y92.9 Unspecified place or not applicable; E87.6 Hypokalemia; B95.61 Methicillin susceptible Staphylococcus aureus infection as the cause of diseases classified elsewhere; Z20.822 Contact with and (suspected) exposure to COVID-19; Z78.1 Physical restraint status
CPT/HCPCS: 0241U; 36415; 51702; 70450; 71045; 80048; 80053; 80175; 80178; 81001; 82550; 82553; 82947; 83735; 84100; 84439; 84443; 84478; 85025; 87040; 87077; 87086; 87186; 93005; 93010; 96365-59; 96366-59; 96367-59; 96375-59; 96376-59; 97110; 97116; 97161; 97165; 97530; 99285-25; A9270; G0480; J0696; J1650; J2060; J2550; J3475; J3480; J7030; J7042; J7070

== ENCOUNTER 2020-04-30 18:55 | Observation (INO) | payer OTHER, MEDICARE ==
[~2020-04-30] VITALS: Ht 172.7 cm; Wt 71.2 kg
[~2020-04-30 18:55] MED LIST changes: +LACT PO; +LAMO100 PO; +MELA3 PO
[2020-04-30 20:27] LABS: Source, Urine Catheter
[2020-04-30 20:33] LABS: BASOPHILS ABSOLUTE AUTO 0.04 K/mm3 (0.00-0.23); BASOPHILS PERCENT AUTO 1 % (0-2); EOSINOPHILS PERCENT AUTO 3 % (0-6); Hematocrit 39.5 % (37.0-53.0); Hemoglobin 13.9 g/dL (13.5-17.5); IMMATURE GRAN ABSOLUTE AUTO 0.01 K/mm3 (0.00-0.10); IMMATURE GRAN PERCENT AUTO 0 % (0-1); LYMPHOCYTES ABSOLUTE AUTO 1.71 K/mm3 (0.84-5.20); LYMPHOCYTES PERCENT AUTO 27 % (21-46); MONOCYTES ABSOLUTE AUTO 0.47 K/mm3 (0.16-1.47); MONOCYTES PERCENT AUTO 8 % (4-13); Mean Corpuscular HGB Conc 35.2 g/dL (31.5-36.5); Mean Corpuscular Volume 85 fL (80-100); NEUTROPHILS ABSOLUTE AUTO 3.83 K/mm3 (1.96-9.15); NEUTROPHILS PERCENT AUTO 61 % (41-73); Platelet Count 263 K/mm3 (150-400); RDW Coefficient Variation 12.3 % (11.7-14.2); RDW Standard Deviation 38.4 fL (35.1-46.3); Red Blood Cell Count 4.63 M/mm3 (4.30-5.90); White Blood Cell Count 6.26 K/mm3 (4.00-11.30)
[2020-04-30 20:37] LABS: Appearance, Urine Hazy (Clear); Bilirubin, Urine Neg (Neg); Blood, Urine 5+ (Neg); Color, Urine Pale Yellow (P-Yellow); Glucose Qualitative, Urine Neg (Neg); Ketones, Urine Neg (Neg); Leukocyte Esterase, Urine 3+ (Neg); Nitrite, Urine Pos (Neg); Protein, Urine 2+ (Neg); Specific Gravity, Urine 1.005 (1.003-1.022); Urobilinogen, Urine NORM (Normal)
[2020-04-30 20:46] LABS: Bacteria Mod /hpf; Squamous Epithelial Cells Rare /hpf (Few); White Blood Cells, Urine TNTC /hpf (0-5)
[2020-04-30 20:51] LABS: Alanine Aminotransfer (ALT/SGP 22 U/L (12-78); Albumin, Blood 3.5 g/dL (3.4-5.0); Albumin/Globulin Ratio 0.9 (0.8-1.8); Alk Phos 99 U/L (50-136); Anion Gap 4 mmol/L (6-16); Aspartate Aminotrans (AST/SGOT 13 U/L (12-37); Bilirubin, Total 0.4 mg/dL (0.1-1.0); Blood Urea Nitrogen 11 mg/dL (8-24); Bun/Creatinine Ratio 13.6 (12.0-20.0); CO2, Blood 30 mmol/L (21-32); Chloride, Blood 107 mmol/L (98-108); Creatinine, Blood 0.81 mg/dL (0.60-1.20); Globulin, Blood 3.8 g/dL (2.2-4.0); Glomerular Filtration Rate >60 (60-); Glucose, Blood 72 mg/dL (70-99); Potassium, Blood 3.2 mmol/L (3.5-5.5); Sodium, Blood 141 mmol/L (136-145); Total Protein, Blood 7.3 g/dL (6.4-8.2)
[2020-04-30] MEDS ORDERED: CIPR250 PO (21:16)
[2020-04-30 23:54] LABS: Lithium <0.20 mmol/L (0.60-1.20)
[2020-05-01 11:48] LABS: Influenza A, PCR NEGATIVE (NEGATIVE); Influenza B, PCR NEGATIVE (NEGATIVE); Resp Syncytial Virus, PCR NEGATIVE (NEGATIVE); SARS-Cov-2 (COVID-19) PCR, MMC NEGATIVE (NEGATIVE)
[2020-05-01] MEDS ORDERED: FINA5 PO (17:05)
[2020-05-01] MEDS ORDERED: QUET100 PO (17:05)
[2020-05-01] MEDS ORDERED: ISOSORBIDE MONO30 MG PO (18:25)
[2020-05-01] MEDS ORDERED: LEVSOD75 PO (18:25)
[2020-05-01] MEDS ORDERED: SENNA LAXATIVE8.6 MG PO (18:26)
[2020-05-01] MEDS ORDERED: CIPR250 PO (18:27)
== END 2020-05-04 08:45 | disposition home or self-care (01) ==
LOC: ER 18:55 → EOR 18:56
PROVIDERS: Emergency Medicine; Physician Assistant; ADMIT Emergency Medicine
DX: F31.4 Bipolar disorder, current episode depressed, severe, without psychotic features (principal); R45.851 Suicidal ideations; F12.19 Cannabis abuse with unspecified cannabis-induced disorder; F19.10 Other psychoactive substance abuse, uncomplicated; F10.10 Alcohol abuse, uncomplicated; M19.90 Unspecified osteoarthritis, unspecified site; J45.909 Unspecified asthma, uncomplicated; F17.210 Nicotine dependence, cigarettes, uncomplicated; Z20.822 Contact with and (suspected) exposure to COVID-19; T83.511A Infection and inflammatory reaction due to indwelling urethral catheter, initial encounter; N39.0 Urinary tract infection, site not specified; Y84.6 Urinary catheterization as the cause of abnormal reaction of the patient, or of later complication, without mention of misadventure at the time of the procedure; N40.1 Benign prostatic hyperplasia with lower urinary tract symptoms; R33.8 Other retention of urine; E11.40 Type 2 diabetes mellitus with diabetic neuropathy, unspecified; E03.8 Other specified hypothyroidism; Z88.2 Allergy status to sulfonamides; Z88.0 Allergy status to penicillin; Z88.8 Allergy status to other drugs, medicaments and biological substances; Z91.030 Bee allergy status; Z88.1 Allergy status to other antibiotic agents
CPT/HCPCS: 0241U; 36415; 80053; 80178; 81001; 85025; 87077; 87086; 87147; 87186; 99285; A9270; G0378; Q3014

== ENCOUNTER 2020-05-17 18:14 | Emergency (ER) | payer MEDICARE, OTHER ==
[~2020-05-17] VITALS: Ht 172.7 cm; Wt 70.3 kg
[~2020-05-17 18:14] MED LIST changes: +CIPR250 PO; +FINA5 PO; +ISOSORBIDE MONO30 MG PO; +LEVSOD75 PO; +QUET100 PO; +SENNA LAXATIVE8.6 MG PO
[2020-05-17] MEDS ORDERED: Hydroxyzine HCl50 MG PO (18:37)
== END 2020-05-17 20:32 | disposition home or self-care (01) ==
LOC: ER 18:14
DX: T83.031A Leakage of indwelling urethral catheter, initial encounter (principal); E11.40 Type 2 diabetes mellitus with diabetic neuropathy, unspecified; E03.9 Hypothyroidism, unspecified; F17.210 Nicotine dependence, cigarettes, uncomplicated; Z88.0 Allergy status to penicillin; Z88.8 Allergy status to other drugs, medicaments and biological substances; Z91.030 Bee allergy status; Z79.899 Other long term (current) drug therapy
CPT/HCPCS: 51702; 99282-25

== ENCOUNTER 2020-06-30 14:43 | Emergency (ER) | payer OTHER, MEDICARE ==
[~2020-06-30] VITALS: Ht 172.7 cm; Wt 70.3 kg
[~2020-06-30 14:43] MED LIST changes: +Hydroxyzine HCl50 MG PO
== END 2020-06-30 16:40 | disposition home or self-care (01) ==
LOC: ER 14:43
DX: S90.821A Blister (nonthermal), right foot, initial encounter (principal); F22 Delusional disorders; E11.40 Type 2 diabetes mellitus with diabetic neuropathy, unspecified; J45.909 Unspecified asthma, uncomplicated; E03.9 Hypothyroidism, unspecified; F17.210 Nicotine dependence, cigarettes, uncomplicated; Z79.899 Other long term (current) drug therapy; Z88.0 Allergy status to penicillin; Z88.2 Allergy status to sulfonamides; Z88.8 Allergy status to other drugs, medicaments and biological substances; Z91.030 Bee allergy status; X58.XXXA Exposure to other specified factors, initial encounter
CPT/HCPCS: 99282

== ENCOUNTER 2020-10-13 21:35 | Emergency (ER) | payer OTHER, MEDICARE ==
[~2020-10-13] VITALS: Ht 172.7 cm; Wt 75.8 kg
[2020-10-13 22:50] LABS: Alanine Aminotransfer (ALT/SGP 38 U/L (12-78); Albumin, Blood 3.6 g/dL (3.4-5.0); Alk Phos 69 U/L (50-136); Anion Gap 4 mmol/L (6-16); Aspartate Aminotrans (AST/SGOT 35 U/L (12-37); Bilirubin, Total 0.5 mg/dL (0.1-1.0); Blood Urea Nitrogen 24 mg/dL (8-24); Bun/Creatinine Ratio 22.9 (12.0-20.0); CO2, Blood 28 mmol/L (21-32); Chloride, Blood 110 mmol/L (98-108); Creatinine, Blood 1.05 mg/dL (0.60-1.20); Globulin, Blood 3.7 g/dL (2.2-4.0); Glomerular Filtration Rate >60 (60-); Glucose, Blood 91 mg/dL (70-99); Potassium, Blood 4.1 mmol/L (3.5-5.5); Sodium, Blood 142 mmol/L (136-145); Total Protein, Blood 7.3 g/dL (6.4-8.2); Uric Acid, Blood 4.9 mg/dL (3.5-7.2)
[2020-10-14 00:19] LABS: BASOPHILS ABSOLUTE AUTO 0.07 K/mm3 (0.00-0.23); BASOPHILS PERCENT AUTO 1 % (0-2); EOSINOPHILS ABSOLUTE AUTO 0.17 K/mm3 (0.00-0.68); EOSINOPHILS PERCENT AUTO 2 % (0-6); Hematocrit 37.6 % (37.0-53.0); Hemoglobin 13.2 g/dL (13.5-17.5); IMMATURE GRAN ABSOLUTE AUTO 0.01 K/mm3 (0.00-0.10); IMMATURE GRAN PERCENT AUTO 0 % (0-1); LYMPHOCYTES ABSOLUTE AUTO 1.61 K/mm3 (0.84-5.20); LYMPHOCYTES PERCENT AUTO 23 % (21-46); MONOCYTES ABSOLUTE AUTO 0.66 K/mm3 (0.16-1.47); MONOCYTES PERCENT AUTO 10 % (4-13); Mean Corpuscular HGB 31.5 pg (26.0-34.0); Mean Corpuscular HGB Conc 35.1 g/dL (31.5-36.5); Mean Corpuscular Volume 90 fL (80-100); Mean Platelet Volume 10.2 fL (9.1-12.4); NEUTROPHILS ABSOLUTE AUTO 4.43 K/mm3 (1.96-9.15); NEUTROPHILS PERCENT AUTO 64 % (41-73); Platelet Count 203 K/mm3 (150-400); RDW Coefficient Variation 12.9 % (11.7-14.2); RDW Standard Deviation 42.9 fL (35.1-46.3); Red Blood Cell Count 4.19 M/mm3 (4.30-5.90); White Blood Cell Count 6.95 K/mm3 (4.00-11.30)
== END 2020-10-14 00:58 | disposition home or self-care (01) ==
LOC: ER 21:35
PROVIDERS: Physician Assistant
DX: M10.9 Gout, unspecified (principal); E03.9 Hypothyroidism, unspecified; J45.909 Unspecified asthma, uncomplicated; E11.40 Type 2 diabetes mellitus with diabetic neuropathy, unspecified; F17.210 Nicotine dependence, cigarettes, uncomplicated; N40.0 Benign prostatic hyperplasia without lower urinary tract symptoms; Z91.038 Other insect allergy status; Z88.0 Allergy status to penicillin; Z88.8 Allergy status to other drugs, medicaments and biological substances; Z88.1 Allergy status to other antibiotic agents; Z79.899 Other long term (current) drug therapy; Z79.890 Hormone replacement therapy
CPT/HCPCS: 36415; 80053; 84550; 85025; 99283

== ENCOUNTER 2021-12-21 19:56 | Emergency (ER) | payer OTHER ==
[~2021-12-21] VITALS: Ht 172.7 cm; Wt 108.9 kg
[~2021-12-21 19:56] MED LIST changes: +ONDA4ODT MM
[2021-12-21 20:23] LABS: BASOPHILS ABSOLUTE AUTO 0.04 K/mm3 (0.00-0.23); BASOPHILS PERCENT AUTO 1 % (0-2); EOSINOPHILS ABSOLUTE AUTO 0.19 K/mm3 (0.00-0.68); EOSINOPHILS PERCENT AUTO 4 % (0-6); Hematocrit 41.1 % (37.0-53.0); IMMATURE GRAN ABSOLUTE AUTO 0.07 K/mm3 (0.00-0.10); IMMATURE GRAN PERCENT AUTO 1 % (0-1); LYMPHOCYTES ABSOLUTE AUTO 1.81 K/mm3 (0.84-5.20); LYMPHOCYTES PERCENT AUTO 35 % (21-46); MONOCYTES PERCENT AUTO 8 % (4-13); Mean Corpuscular HGB 32.8 pg (26.0-34.0); Mean Corpuscular HGB Conc 36.5 g/dL (31.5-36.5); Mean Corpuscular Volume 90 fL (80-100); Mean Platelet Volume 10.2 fL (9.1-12.4); NEUTROPHILS ABSOLUTE AUTO 2.74 K/mm3 (1.96-9.15); NEUTROPHILS PERCENT AUTO 52 % (41-73); Platelet Count 229 K/mm3 (150-400); RDW Coefficient Variation 11.9 % (11.7-14.2); RDW Standard Deviation 39.1 fL (35.1-46.3); Red Blood Cell Count 4.57 M/mm3 (4.30-5.90); White Blood Cell Count 5.25 K/mm3 (4.00-11.30)
[2021-12-21 20:42] LABS: Albumin, Blood 3.5 g/dL (3.4-5.0); Bilirubin, Total 0.3 mg/dL (0.1-1.0); Bun/Creatinine Ratio 11.8 (12.0-20.0); Calcium, Blood 8.6 mg/dL (8.5-10.1); Creatinine, Blood 0.93 mg/dL (0.60-1.20); Globulin, Blood 3.4 g/dL (2.2-4.0); Total Protein, Blood 6.9 g/dL (6.4-8.2)
[2021-12-21] MEDS ORDERED: ACET500 (21:12)
[2021-12-21] MEDS ORDERED: ABILIFY MYCITE20 M2 PO (21:13)
[2021-12-21] MEDS ORDERED: ATOR20 PO (21:13)
[2021-12-21] MEDS ORDERED: BUSP10 PO (21:13)
[2021-12-21] MEDS ORDERED: DIVA500ER PO (21:14)
[2021-12-21] MEDS ORDERED: SERT25 PO (21:14)
[2021-12-21] MEDS ORDERED: DIVA500EC PO (21:15)
[2021-12-21] MEDS ORDERED: GABA300 PO (21:15)
[2021-12-21] MEDS ORDERED: LISI20 PO ×2 (21:16→21:25)
[2021-12-21] MEDS ORDERED: MINIPRESS2 M1 PO (21:16)
[2021-12-21] MEDS ORDERED: ALBU90OI INH ×2 (21:17→23:50)
[2021-12-21] MEDS ORDERED: PRED20 PO ×2 (23:47→23:50)
[2021-12-21] MEDS ORDERED: BENZ100A PO ×2 (23:48→23:50)
[2021-12-21] MEDS ORDERED: DOXY100 PO ×2 (23:48→23:50)
== END 2021-12-22 00:20 | disposition home or self-care (01) ==
LOC: ER 19:56
PROVIDERS: Physician Assistant
DX: J44.1 Chronic obstructive pulmonary disease with (acute) exacerbation (principal); R55 Syncope and collapse; I95.9 Hypotension, unspecified; E86.0 Dehydration; J40 Bronchitis, not specified as acute or chronic; E03.9 Hypothyroidism, unspecified; E11.40 Type 2 diabetes mellitus with diabetic neuropathy, unspecified; F17.210 Nicotine dependence, cigarettes, uncomplicated; Z88.8 Allergy status to other drugs, medicaments and biological substances; Z88.1 Allergy status to other antibiotic agents; Z91.030 Bee allergy status; Z79.899 Other long term (current) drug therapy
CPT/HCPCS: 36415; 71046; 80053; 83690; 83880; 84484; 85025; 93005; 93010; 94640; 94644; 94664; 99284-25; A9270; J7030; J7512

== ENCOUNTER 2022-02-08 09:31 | Emergency (ER) | payer OTHER ==
[~2022-02-08] VITALS: Ht 172.7 cm; Wt 108.9 kg
[~2022-02-08 09:31] MED LIST changes: +ABILIFY MYCITE20 M2 PO; +ACET500; +ALBU90OI INH; +ATOR20 PO; +BENZ100A PO; +BUSP10 PO; +DIVA500EC PO; +DIVA500ER PO; +DOXY100 PO; +GABA300 PO; +LISI20 PO; +MINIPRESS2 M1 PO; +PRED20 PO; +SERT25 PO
[2022-02-08 09:56] LABS: BASOPHILS ABSOLUTE AUTO 0.03 K/mm3 (0.00-0.23); BASOPHILS PERCENT AUTO 1 % (0-2); EOSINOPHILS ABSOLUTE AUTO 0.12 K/mm3 (0.00-0.68); EOSINOPHILS PERCENT AUTO 2 % (0-6); Hematocrit 46.5 % (37.0-53.0); Hemoglobin 16.7 g/dL (13.5-17.5); IMMATURE GRAN ABSOLUTE AUTO 0.06 K/mm3 (0.00-0.10); IMMATURE GRAN PERCENT AUTO 1 % (0-1); LYMPHOCYTES ABSOLUTE AUTO 1.59 K/mm3 (0.84-5.20); LYMPHOCYTES PERCENT AUTO 24 % (21-46); MONOCYTES PERCENT AUTO 8 % (4-13); Mean Corpuscular HGB 32.5 pg (26.0-34.0); Mean Corpuscular HGB Conc 35.9 g/dL (31.5-36.5); Mean Corpuscular Volume 91 fL (80-100); Mean Platelet Volume 10.5 fL (9.1-12.4); NEUTROPHILS ABSOLUTE AUTO 4.28 K/mm3 (1.96-9.15); NEUTROPHILS PERCENT AUTO 65 % (41-73); Platelet Count 218 K/mm3 (150-400); RDW Coefficient Variation 11.5 % (11.7-14.2); RDW Standard Deviation 38.5 fL (35.1-46.3); Red Blood Cell Count 5.14 M/mm3 (4.30-5.90); White Blood Cell Count 6.58 K/mm3 (4.00-11.30)
[2022-02-08 10:16] LABS: Albumin, Blood 3.8 g/dL (3.4-5.0); Albumin/Globulin Ratio 1.1 (0.8-1.8); Bilirubin, Total 0.5 mg/dL (0.1-1.0); Bun/Creatinine Ratio 14.8 (12.0-20.0); Calcium, Blood 9.4 mg/dL (8.5-10.1); Creatinine, Blood 0.74 mg/dL (0.60-1.20); Globulin, Blood 3.5 g/dL (2.2-4.0); Potassium, Blood 3.7 mmol/L (3.5-5.5); Total Protein, Blood 7.3 g/dL (6.4-8.2)
[2022-02-08] MEDS ORDERED: PRED20 PO ×2 (13:27→15:52)
[2022-02-08] MEDS ORDERED: ASPIR 8181 MG PO (13:54)
[2022-02-08] MEDS ORDERED: LOSA50 PO (13:55)
[2022-02-08] MEDS ORDERED: PRAZ5 PO (13:56)
[2022-02-08] MEDS ORDERED: HYDPAM50 PO (13:58)
[2022-02-08] MEDS ORDERED: NICOTINE LOZENGE2 MG MM (13:59)
[2022-02-08] MEDS ORDERED: STIOLTO RESPIMAT4 G1 INH (13:59)
[2022-02-08] MEDS ORDERED: SENNA LAXATIVE8.6 MG PO (14:00)
[2022-02-08] MEDS ORDERED: ZOVIRAX800 MG PO (14:00)
[2022-02-08] MEDS ORDERED: ASMANEX HFA13 G4 INH (14:02)
== END 2022-02-08 16:01 | disposition home or self-care (01) ==
LOC: ER 09:31
PROVIDERS: Physician Assistant
DX: J44.1 Chronic obstructive pulmonary disease with (acute) exacerbation (principal); R07.89 Other chest pain; E11.40 Type 2 diabetes mellitus with diabetic neuropathy, unspecified; J44.9 Chronic obstructive pulmonary disease, unspecified; E03.9 Hypothyroidism, unspecified; I10 Essential (primary) hypertension; F17.210 Nicotine dependence, cigarettes, uncomplicated; Z88.8 Allergy status to other drugs, medicaments and biological substances; Z88.0 Allergy status to penicillin; Z88.2 Allergy status to sulfonamides; Z91.038 Other insect allergy status; Z79.899 Other long term (current) drug therapy
CPT/HCPCS: 36415; 71045; 80053; 83880; 84484; 85025; 93005; 93010; 94644; 94645; 94664; A9270; J7512

== ENCOUNTER 2022-11-03 20:36 | Emergency (ER) | payer OTHER ==
[~2022-11-03] VITALS: Ht 172.7 cm; Wt 107.5 kg
[~2022-11-03 20:36] MED LIST changes: +ASMANEX HFA13 G4 INH; +ASPIR 8181 MG PO; +HYDPAM50 PO; +LOSA50 PO; +NICOTINE LOZENGE2 MG MM; +PRAZ5 PO; +PROM25 PO; +PYRI100 PO; +STIOLTO RESPIMAT4 G1 IH; +STIOLTO RESPIMAT4 G1 INH; +ZOVIRAX800 MG PO
[2022-11-04] MEDS ORDERED: DOXY100 PO (00:30)
[2022-11-04] MEDS ORDERED: CEPH500 PO (00:30)
[2022-11-04 00:49] VITALS: BP 129/74
== END 2022-11-04 00:55 | disposition home or self-care (01) ==
LOC: ER 20:36
DX: L03.114 Cellulitis of left upper limb (principal); Z88.8 Allergy status to other drugs, medicaments and biological substances; Z88.0 Allergy status to penicillin; Z88.1 Allergy status to other antibiotic agents; Z91.030 Bee allergy status; Z88.2 Allergy status to sulfonamides; Z79.899 Other long term (current) drug therapy; Z79.82 Long term (current) use of aspirin; E11.40 Type 2 diabetes mellitus with diabetic neuropathy, unspecified; J44.9 Chronic obstructive pulmonary disease, unspecified; E03.9 Hypothyroidism, unspecified; I10 Essential (primary) hypertension; F17.210 Nicotine dependence, cigarettes, uncomplicated
CPT/HCPCS: 99283; A9270

== ENCOUNTER 2022-11-13 06:36 | Emergency (ER) | payer OTHER ==
[~2022-11-13] VITALS: Ht 172.7 cm; Wt 108.9 kg
[~2022-11-13 06:36] MED LIST changes: +CEPH500 PO
[2022-11-13 08:32] LABS: BASOPHILS ABSOLUTE AUTO 0.05 K/mm3 (0.00-0.23); BASOPHILS PERCENT AUTO 1 % (0-2); EOSINOPHILS ABSOLUTE AUTO 0.17 K/mm3 (0.00-0.68); EOSINOPHILS PERCENT AUTO 3 % (0-6); Hematocrit 43.8 % (37.0-53.0); Hemoglobin 15.9 g/dL (13.5-17.5); IMMATURE GRAN ABSOLUTE AUTO 0.06 K/mm3 (0.00-0.10); IMMATURE GRAN PERCENT AUTO 1 % (0-1); LYMPHOCYTES ABSOLUTE AUTO 1.88 K/mm3 (0.84-5.20); LYMPHOCYTES PERCENT AUTO 29 % (21-46); MONOCYTES ABSOLUTE AUTO 0.59 K/mm3 (0.16-1.47); MONOCYTES PERCENT AUTO 9 % (4-13); Mean Corpuscular HGB 32.2 pg (26.0-34.0); Mean Corpuscular HGB Conc 36.3 g/dL (31.5-36.5); Mean Corpuscular Volume 89 fL (80-100); Mean Platelet Volume 10.9 fL (9.1-12.4); NEUTROPHILS ABSOLUTE AUTO 3.75 K/mm3 (1.96-9.15); NEUTROPHILS PERCENT AUTO 58 % (41-73); Platelet Count 184 K/mm3 (150-400); RDW Coefficient Variation 12.3 % (11.7-14.2); Red Blood Cell Count 4.94 M/mm3 (4.30-5.90)
[2022-11-13 08:45] LABS: Albumin, Blood 3.7 g/dL (3.4-5.0); Bilirubin, Total 0.4 mg/dL (0.1-1.0); Calcium, Blood 8.9 mg/dL (8.5-10.1); Creatinine, Blood 0.8 mg/dL (0.60-1.20); Globulin, Blood 3.6 g/dL (2.2-4.0); Total Protein, Blood 7.3 g/dL (6.4-8.2)
[2022-11-13] MEDS ORDERED: FLUTICASONE-SA1 EAC1 INH (09:53)
[2022-11-13] MEDS ORDERED: STIOLTO RESPIMAT4 G1 IH (09:54)
[2022-11-13] MEDS ORDERED: POTA10T PO (10:01)
[2022-11-13] MEDS ORDERED: FURO20 PO (10:01)
[2022-11-13 10:38] VITALS: BP 155/104
== END 2022-11-13 10:43 | disposition home or self-care (01) ==
LOC: ER 06:36
PROVIDERS: Emergency Medicine
DX: R60.0 Localized edema (principal); E11.40 Type 2 diabetes mellitus with diabetic neuropathy, unspecified; J44.9 Chronic obstructive pulmonary disease, unspecified; I10 Essential (primary) hypertension; E03.9 Hypothyroidism, unspecified; L40.0 Psoriasis vulgaris; F17.210 Nicotine dependence, cigarettes, uncomplicated; Z88.8 Allergy status to other drugs, medicaments and biological substances; Z88.0 Allergy status to penicillin; Z88.2 Allergy status to sulfonamides; Z91.030 Bee allergy status; Z79.82 Long term (current) use of aspirin; Z79.899 Other long term (current) drug therapy
CPT/HCPCS: 71046; 80053; 83880; 85025; 93005; 93010; A9270

== ENCOUNTER 2022-11-18 10:35 | Emergency (ER) | payer OTHER ==
[~2022-11-18] VITALS: Ht 172.7 cm; Wt 108.9 kg
[~2022-11-18 10:35] MED LIST changes: +FLUTICASONE-SA1 EAC1 INH; +FURO20 PO; +POTA10T PO
[2022-11-18 12:17] LABS: BASOPHILS ABSOLUTE AUTO 0.06 K/mm3 (0.00-0.23); BASOPHILS PERCENT AUTO 1 % (0-2); EOSINOPHILS ABSOLUTE AUTO 0.15 K/mm3 (0.00-0.68); EOSINOPHILS PERCENT AUTO 2 % (0-6); Hematocrit 43.4 % (37.0-53.0); Hemoglobin 15.4 g/dL (13.5-17.5); IMMATURE GRAN ABSOLUTE AUTO 0.05 K/mm3 (0.00-0.10); IMMATURE GRAN PERCENT AUTO 1 % (0-1); LYMPHOCYTES ABSOLUTE AUTO 1.92 K/mm3 (0.84-5.20); LYMPHOCYTES PERCENT AUTO 26 % (21-46); MONOCYTES PERCENT AUTO 7 % (4-13); Mean Corpuscular HGB 31.6 pg (26.0-34.0); Mean Corpuscular HGB Conc 35.5 g/dL (31.5-36.5); Mean Corpuscular Volume 89 fL (80-100); Mean Platelet Volume 10.6 fL (9.1-12.4); NEUTROPHILS ABSOLUTE AUTO 4.59 K/mm3 (1.96-9.15); NEUTROPHILS PERCENT AUTO 63 % (41-73); Platelet Count 213 K/mm3 (150-400); RDW Coefficient Variation 12.2 % (11.7-14.2); RDW Standard Deviation 39.7 fL (35.1-46.3); Red Blood Cell Count 4.87 M/mm3 (4.30-5.90); White Blood Cell Count 7.27 K/mm3 (4.00-11.30)
[2022-11-18 12:37] LABS: Albumin, Blood 3.5 g/dL (3.4-5.0); Bilirubin, Total 0.7 mg/dL (0.1-1.0); Bun/Creatinine Ratio 11.9 (12.0-20.0); Calcium, Blood 8.9 mg/dL (8.5-10.1); Creatinine, Blood 0.84 mg/dL (0.60-1.20); Globulin, Blood 3.4 g/dL (2.2-4.0); Potassium, Blood 4.1 mmol/L (3.5-5.5); Total Protein, Blood 6.9 g/dL (6.4-8.2)
[2022-11-18] MEDS ORDERED: ASPI81CH PO (16:24)
[2022-11-18] MEDS ORDERED: ARIP30 PO (16:24)
[2022-11-18] MEDS ORDERED: ZYRTEC10 M2 PO (16:25)
[2022-11-18] MEDS ORDERED: DIVA500EC PO ×2 (16:25→16:26)
[2022-11-18] MEDS ORDERED: ATOR20 PO (16:25)
[2022-11-18] MEDS ORDERED: Isosorbide Mono30 MG PO (16:26)
[2022-11-18] MEDS ORDERED: Flonase 0.05% N16 GM (16:26)
[2022-11-18] MEDS ORDERED: FINA5 PO (16:26)
[2022-11-18] MEDS ORDERED: GABA300 PO (16:26)
[2022-11-18] MEDS ORDERED: STIOLTO RESPIMAT4 G1 IH (16:27)
[2022-11-18] MEDS ORDERED: TAMS.4ER PO (16:27)
[2022-11-18] MEDS ORDERED: PRAZ5 PO (16:27)
[2022-11-18] MEDS ORDERED: PYRI100 PO (16:27)
[2022-11-18] MEDS ORDERED: LOSA25 PO (16:27)
[2022-11-18] MEDS ORDERED: LEVSOD75 PO (16:27)
[2022-11-18] MEDS ORDERED: HYDPAM50 PO (16:28)
[2022-11-18] MEDS ORDERED: ACET325 PO (16:28)
[2022-11-18] MEDS ORDERED: ALBU90OI INH (16:28)
[2022-11-18] MEDS ORDERED: BISA5EC PO (16:28)
[2022-11-18] MEDS ORDERED: IBUP600 PO (16:29)
[2022-11-18] MEDS ORDERED: PROM25 PO (16:29)
[2022-11-18] MEDS ORDERED: FURO20 PO (16:29)
[2022-11-18] MEDS ORDERED: POTA20PAC (16:30)
[2022-11-18] MEDS ORDERED: BENZ100A PO (16:30)
[2022-11-18 16:38] VITALS: BP 122/70
[2022-11-18 17:10] LABS: Source, Urine Clean Catch
[2022-11-18 18:01] LABS: Appearance, Urine Clear (Clear); Bilirubin, Urine Neg (Neg); Blood, Urine Neg (Neg); Color, Urine Yellow (P-Yellow); Glucose Qualitative, Urine Neg (Neg); Ketones, Urine Neg (Neg); Leukocyte Esterase, Urine Neg (Neg); Nitrite, Urine Neg (Neg); Protein, Urine Neg (Neg); Specific Gravity, Urine 1.015 (1.003-1.022); Urobilinogen, Urine NORM (Normal); pH, Urine 6.5 (5.0-8.0)
== END 2022-11-18 19:38 ==
LOC: ER 10:35
PROVIDERS: Student in an Organized Health Care Education/Training Program
DX: I95.9 Hypotension, unspecified (principal); Z88.8 Allergy status to other drugs, medicaments and biological substances; Z88.0 Allergy status to penicillin; Z88.2 Allergy status to sulfonamides; Z88.1 Allergy status to other antibiotic agents; Z91.030 Bee allergy status; Z79.899 Other long term (current) drug therapy; Z79.82 Long term (current) use of aspirin; E11.40 Type 2 diabetes mellitus with diabetic neuropathy, unspecified; J44.9 Chronic obstructive pulmonary disease, unspecified; E03.9 Hypothyroidism, unspecified; I10 Essential (primary) hypertension; M19.90 Unspecified osteoarthritis, unspecified site; F17.210 Nicotine dependence, cigarettes, uncomplicated
CPT/HCPCS: 71046; 80053; 81003; 85025; 93005; 93010; 99284-25

== ENCOUNTER 2022-12-28 07:05 | Day surgery (SDC) | payer OTHER ==
[2022-12-28] VITALS (9 sets, daily range): BP systolic 126–148; BP diastolic 72–121
[~2022-12-28] VITALS: Ht 172.7 cm; Wt 108.0 kg
[~2022-12-28 07:05] MED LIST changes: +ACET325 PO; +ARIP30 PO; +ASPI81CH PO; +BISA5EC PO; +CLOP75 PO; +Flonase 0.05% N16 GM; +IBUP600 PO; +Isosorbide Mono30 MG PO; +LOSA25 PO; +METO25ER PO; +POTA20PAC
[2022-12-28] MEDS ORDERED: LACT PO (08:07)
[2022-12-28] MEDS ORDERED: BENZ1 PO (08:08)
--- NOTE | 2022-12-28 08:33 | NUR ---
DR. BERNSTEIN IN TO SEE PT, LABS DRAWN WITH IV START.
[2022-12-28 08:48] LABS: BASOPHILS ABSOLUTE AUTO 0.07 K/mm3 (0.00-0.23); BASOPHILS PERCENT AUTO 1 % (0-2); EOSINOPHILS ABSOLUTE AUTO 0.15 K/mm3 (0.00-0.68); EOSINOPHILS PERCENT AUTO 2 % (0-6); Hematocrit 44.3 % (37.0-53.0); Hemoglobin 15.5 g/dL (13.5-17.5); IMMATURE GRAN ABSOLUTE AUTO 0.08 K/mm3 (0.00-0.10); IMMATURE GRAN PERCENT AUTO 1 % (0-1); LYMPHOCYTES ABSOLUTE AUTO 1.62 K/mm3 (0.84-5.20); LYMPHOCYTES PERCENT AUTO 21 % (21-46); MONOCYTES ABSOLUTE AUTO 0.76 K/mm3 (0.16-1.47); MONOCYTES PERCENT AUTO 10 % (4-13); Mean Corpuscular HGB 31.7 pg (26.0-34.0); Mean Corpuscular Volume 91 fL (80-100); Mean Platelet Volume 10.4 fL (9.1-12.4); NEUTROPHILS ABSOLUTE AUTO 4.98 K/mm3 (1.96-9.15); NEUTROPHILS PERCENT AUTO 65 % (41-73); Platelet Count 216 K/mm3 (150-400); RDW Coefficient Variation 11.8 % (11.7-14.2); RDW Standard Deviation 39.1 fL (35.1-46.3); Red Blood Cell Count 4.89 M/mm3 (4.30-5.90); White Blood Cell Count 7.66 K/mm3 (4.00-11.30)
[2022-12-28 09:06] LABS: Albumin, Blood 3.3 g/dL (3.4-5.0); Albumin/Globulin Ratio 0.9 (0.8-1.8); Bilirubin, Total 0.5 mg/dL (0.1-1.0); Bun/Creatinine Ratio 10.2 (12.0-20.0); Calcium, Blood 8.7 mg/dL (8.5-10.1); Creatinine, Blood 1.18 mg/dL (0.60-1.20); Globulin, Blood 3.7 g/dL (2.2-4.0); Potassium, Blood 3.9 mmol/L (3.5-5.5); Prothrombin Time Results 10.5 Sec (9.7-11.5)
--- NOTE | 2022-12-28 12:15 | NUR ---
PT BACK TO RECOVERY ROOM FROM PROCEDURE. PT A&OX 4, PT GIVEN LUNCH. TR BAND ON R WRIST WITH 20 CC IN BAND. VSS. CALL LIGHT WITHIN REACH.
--- NOTE | 2022-12-28 14:02 | NUR ---
TR BAND FULLY DEFLATED. PT SITTING UP IN RECLINER DRINKING WATER AND TALKING. DENIES NEEDS.
--- NOTE | 2022-12-28 14:53 | NUR ---
PT VERBALIZE D/C INSTRUCTIONS. TR BAND REMOVED, AND DOT CLOTH DRESSING PLACED, NO BLEEDING OR SWELLING. PT CALLED TAXI FOR RIDE. SLING PLACED TO HELP REMIND PT NOT TO USE R ARM. PT WHEELED OUT TO ENTERENCE AWAITING TAXI.
== END 2022-12-28 15:32 | disposition home or self-care (01) ==
LOC: MHTC 07:05
PROVIDERS: Internal Medicine Cardiovascular Disease
DX: R07.9 Chest pain, unspecified (principal); E78.5 Hyperlipidemia, unspecified; E11.9 Type 2 diabetes mellitus without complications; J44.9 Chronic obstructive pulmonary disease, unspecified; I10 Essential (primary) hypertension; Z88.0 Allergy status to penicillin; Z88.1 Allergy status to other antibiotic agents; E66.01 Morbid (severe) obesity due to excess calories; E03.9 Hypothyroidism, unspecified; Z68.36 Body mass index [BMI] 36.0-36.9, adult
CPT/HCPCS: 76937; 80053; 85025; 85610; 93458; 99152; 99153; C1769; C1887; C1894; J1644; J2250; J3010; J7030; J7050; Q9967

== ENCOUNTER 2023-02-26 17:33 | Observation (INO) | payer MEDICARE ==
[~2023-02-26] VITALS: Ht 172.7 cm; Wt 108.9 kg
[~2023-02-26 17:33] MED LIST changes: -ASPI81CH PO; +ASPIR 8181 M1 PO; +BENZ1 PO
[2023-02-26 17:57] LABS: BASOPHILS ABSOLUTE AUTO 0.03 K/mm3 (0.00-0.23); BASOPHILS PERCENT AUTO 0 % (0-2); EOSINOPHILS ABSOLUTE AUTO 0.02 K/mm3 (0.00-0.68); EOSINOPHILS PERCENT AUTO 0 % (0-6); Hematocrit 42.7 % (37.0-53.0); Hemoglobin 14.9 g/dL (13.5-17.5); IMMATURE GRAN ABSOLUTE AUTO 0.03 K/mm3 (0.00-0.10); IMMATURE GRAN PERCENT AUTO 0 % (0-1); LYMPHOCYTES ABSOLUTE AUTO 1.11 K/mm3 (0.84-5.20); LYMPHOCYTES PERCENT AUTO 15 % (21-46); MONOCYTES ABSOLUTE AUTO 0.38 K/mm3 (0.16-1.47); MONOCYTES PERCENT AUTO 5 % (4-13); Mean Corpuscular HGB 31.4 pg (26.0-34.0); Mean Corpuscular HGB Conc 34.9 g/dL (31.5-36.5); Mean Corpuscular Volume 90 fL (80-100); Mean Platelet Volume 11.1 fL (9.1-12.4); NEUTROPHILS ABSOLUTE AUTO 5.95 K/mm3 (1.96-9.15); NEUTROPHILS PERCENT AUTO 79 % (41-73); Platelet Count 182 K/mm3 (150-400); RDW Coefficient Variation 12.1 % (11.7-14.2); RDW Standard Deviation 39.8 fL (35.1-46.3); Red Blood Cell Count 4.74 M/mm3 (4.30-5.90); White Blood Cell Count 7.52 K/mm3 (4.00-11.30)
[2023-02-26 18:11] LABS: Ethanol (Alcohol), Blood, Med <3 mg/dL; Salicylate <1.7 mg/dL (2.8-20.0)
[2023-02-26 18:13] LABS: Acetaminophen, Random <2.0 ug/mL (10.0-30.0); Alanine Aminotransfer (ALT/SGP 32 U/L (12-78); Albumin, Blood 3.3 g/dL (3.4-5.0); Albumin/Globulin Ratio 0.8 (0.8-1.8); Alk Phos 62 U/L (50-136); Anion Gap 5 mmol/L (6-16); Aspartate Aminotrans (AST/SGOT 32 U/L (12-37); Bilirubin, Total 0.6 mg/dL (0.1-1.0); Blood Urea Nitrogen 12 mg/dL (8-24); Bun/Creatinine Ratio 12.4 (12.0-20.0); CO2, Blood 24 mmol/L (21-32); Calcium, Blood 8.3 mg/dL (8.5-10.1); Chloride, Blood 109 mmol/L (98-108); Creatinine, Blood 0.97 mg/dL (0.60-1.20); Glomerular Filtration Rate 87 (60-); Glucose, Blood 113 mg/dL (70-99); Potassium, Blood 4.1 mmol/L (3.5-5.5); Sodium, Blood 138 mmol/L (136-145); Total Protein, Blood 7.3 g/dL (6.4-8.2)
[2023-02-26 19:05] LABS: Influenza A, PCR NEGATIVE (NEGATIVE); Influenza B, PCR NEGATIVE (NEGATIVE); Resp Syncytial Virus, PCR NEGATIVE (NEGATIVE); SARS-Cov-2 (COVID-19) PCR, MMC NEGATIVE (NEGATIVE)
[2023-02-26 19:59] LABS: Source, Urine Voided
[2023-02-26 20:03] LABS: Bilirubin, Urine Neg (Neg); Blood, Urine Neg (Neg); Glucose Qualitative, Urine Neg (Neg); Ketones, Urine 2+ (Neg); Leukocyte Esterase, Urine 1+ (Neg); Nitrite, Urine Neg (Neg); Protein, Urine Neg (Neg); Urobilinogen, Urine 2+ (Normal)
[2023-02-26 20:16] LABS: Appearance, Urine Clear (Clear); Bacteria Rare /hpf; Color, Urine Yellow (P-Yellow); Mucus Light (0-Heavy); Red Blood Cells, Urine Not Seen /hpf (0-2); Squamous Epithelial Cells Rare /hpf (Few); White Blood Cells, Urine 0-2 /hpf (0-5)
[2023-02-26 20:30] LABS: U Amphetamine Screen Not Detected; U Barbituate Screen Not Detected; U Benzodiazapine Screen Not Detected; U Buprenorphine Screen Not Detected; U Cannabinoids Screen Not Detected; U Cocaine Screen Not Detected; U Methadone Screen Not Detected; U Methamphetamine Screen Not Detected; U Opiates Screen Not Detected; U Oxycodone Screen Not Detected; U Phencyclidine Screen Not Detected
[2023-02-26 21:01] LABS: Valproic Acid 72.4 ug/mL (50.0-100.0)
[2023-02-26 21:03] LABS: Thyroid Stimulating Hormone 0.499 uIU/mL (0.360-4.800)
[2023-02-27 11:16] VITALS: BP 141/78
[2023-03-07] MEDS ORDERED: DOCUSATE/SENNA PO (19:46)
[2023-03-07] MEDS ORDERED: PYRI25 PO (19:50)
[2023-03-07] MEDS ORDERED: MIRALAX1714 PO (19:53)
[2023-03-07] MEDS ORDERED: MULVITA PO (19:54)
[2023-03-07] MEDS ORDERED: ALMACONE SUSPE355 ML PO (23:59)
== END 2023-02-27 12:26 | disposition home or self-care (01) ==
LOC: ER 17:33 → EOR 17:34
PROVIDERS: ADMIT Emergency Medicine
DX: F25.0 Schizoaffective disorder, bipolar type (principal); F10.20 Alcohol dependence, uncomplicated; N40.0 Benign prostatic hyperplasia without lower urinary tract symptoms; E11.40 Type 2 diabetes mellitus with diabetic neuropathy, unspecified; J44.9 Chronic obstructive pulmonary disease, unspecified; E03.9 Hypothyroidism, unspecified; I10 Essential (primary) hypertension; M19.90 Unspecified osteoarthritis, unspecified site; Z88.8 Allergy status to other drugs, medicaments and biological substances; R45.851 Suicidal ideations; Z79.82 Long term (current) use of aspirin; Z79.899 Other long term (current) drug therapy
CPT/HCPCS: 0241U; 80053; 80164; 81001; 84443; 85025; 93005; 93010; 96374; 99285-25; A9270; G0378; G0480; J2405

== ENCOUNTER 2023-03-26 13:09 | Observation (INO) | payer OTHER ==
[~2023-03-26] VITALS: Ht 167.6 cm; Wt 72.6 kg
[~2023-03-26 13:09] MED LIST changes: +ALMACONE SUSPE355 ML PO; +DOCUSATE/SENNA PO; +MIRALAX1714 PO; +MULVITA PO; +PYRI25 PO
[2023-03-26 14:27] LABS: BASOPHILS ABSOLUTE AUTO 0.06 K/mm3 (0.00-0.23); BASOPHILS PERCENT AUTO 1 % (0-2); EOSINOPHILS ABSOLUTE AUTO 0.15 K/mm3 (0.00-0.68); EOSINOPHILS PERCENT AUTO 2 % (0-6); Hematocrit 44.5 % (37.0-53.0); Hemoglobin 15.8 g/dL (13.5-17.5); IMMATURE GRAN ABSOLUTE AUTO 0.02 K/mm3 (0.00-0.10); IMMATURE GRAN PERCENT AUTO 0 % (0-1); LYMPHOCYTES ABSOLUTE AUTO 1.69 K/mm3 (0.84-5.20); LYMPHOCYTES PERCENT AUTO 26 % (21-46); MONOCYTES ABSOLUTE AUTO 0.46 K/mm3 (0.16-1.47); MONOCYTES PERCENT AUTO 7 % (4-13); Mean Corpuscular HGB 31.8 pg (26.0-34.0); Mean Corpuscular HGB Conc 35.5 g/dL (31.5-36.5); Mean Corpuscular Volume 90 fL (80-100); Mean Platelet Volume 10.3 fL (9.1-12.4); NEUTROPHILS ABSOLUTE AUTO 4.04 K/mm3 (1.96-9.15); NEUTROPHILS PERCENT AUTO 63 % (41-73); Platelet Count 231 K/mm3 (150-400); RDW Coefficient Variation 12.2 % (11.7-14.2); RDW Standard Deviation 40.1 fL (35.1-46.3); Red Blood Cell Count 4.97 M/mm3 (4.30-5.90); White Blood Cell Count 6.42 K/mm3 (4.00-11.30)
[2023-03-26 15:00] LABS: Ethanol (Alcohol), Blood, Med <3 mg/dL; Salicylate 3.9 mg/dL (2.8-20.0)
[2023-03-26 15:08] LABS: Acetaminophen, Random <2.0 ug/mL (10.0-30.0); Alanine Aminotransfer (ALT/SGP 43 U/L (12-78); Albumin, Blood 3.6 g/dL (3.4-5.0); Albumin/Globulin Ratio 0.8 (0.8-1.8); Alk Phos 72 U/L (50-136); Anion Gap 5 mmol/L (6-16); Aspartate Aminotrans (AST/SGOT 34 U/L (12-37); Bilirubin, Total 0.5 mg/dL (0.1-1.0); Blood Urea Nitrogen 9 mg/dL (8-24); Bun/Creatinine Ratio 9.9 (12.0-20.0); CO2, Blood 24 mmol/L (21-32); Calcium, Blood 8.7 mg/dL (8.5-10.1); Chloride, Blood 112 mmol/L (98-108); Creatinine, Blood 0.91 mg/dL (0.60-1.20); Globulin, Blood 4.3 g/dL (2.2-4.0); Glomerular Filtration Rate 94 (60-); Glucose, Blood 118 mg/dL (70-99); Sodium, Blood 141 mmol/L (136-145); Total Protein, Blood 7.9 g/dL (6.4-8.2)
[2023-03-26 15:30] LABS: Influenza A, PCR NEGATIVE (NEGATIVE); Influenza B, PCR NEGATIVE (NEGATIVE); Resp Syncytial Virus, PCR NEGATIVE (NEGATIVE); SARS-Cov-2 (COVID-19) PCR, MMC NEGATIVE (NEGATIVE)
[2023-03-26 16:38] LABS: Source, Urine Clean Catch
[2023-03-26 16:50] LABS: Appearance, Urine Clear (Clear); Bilirubin, Urine Neg (Neg); Blood, Urine Neg (Neg); Color, Urine Yellow (P-Yellow); Glucose Qualitative, Urine Neg (Neg); Ketones, Urine Neg (Neg); Leukocyte Esterase, Urine Neg (Neg); Nitrite, Urine Neg (Neg); Protein, Urine Neg (Neg); Specific Gravity, Urine 1.015 (1.003-1.022); Urobilinogen, Urine NORM (Normal)
[2023-03-26 17:21] LABS: U Amphetamine Screen Not Detected; U Barbituate Screen Not Detected; U Benzodiazapine Screen Not Detected; U Cocaine Screen Not Detected; U Methadone Screen Not Detected; U Methamphetamine Screen Not Detected; U Opiates Screen Not Detected
[2023-03-26 17:22] LABS: U Buprenorphine Screen Not Detected; U Cannabinoids Screen Not Detected; U Oxycodone Screen Not Detected; U Phencyclidine Screen Not Detected
[2023-03-27 11:00] VITALS: BP 132/80
== END 2023-03-26 13:28 ==
LOC: ER 13:09 → EOR 13:10
PROVIDERS: ADMIT Student in an Organized Health Care Education/Training Program
DX: F25.0 Schizoaffective disorder, bipolar type (principal); R45.851 Suicidal ideations; N40.0 Benign prostatic hyperplasia without lower urinary tract symptoms; E11.40 Type 2 diabetes mellitus with diabetic neuropathy, unspecified; J44.9 Chronic obstructive pulmonary disease, unspecified; E03.9 Hypothyroidism, unspecified; I10 Essential (primary) hypertension; F32.9 Major depressive disorder, single episode, unspecified; M19.90 Unspecified osteoarthritis, unspecified site; Z88.0 Allergy status to penicillin; Z88.8 Allergy status to other drugs, medicaments and biological substances
CPT/HCPCS: 0241U; 80053; 81003; 85025; 93005; 93010; A9270; G0480

== ENCOUNTER 2023-06-25 03:38 | Observation (INO) | payer OTHER ==
[~2023-06-25] VITALS: Ht 170.2 cm; Wt 107.6 kg
[~2023-06-25 03:38] MED LIST changes: +LIDOCAINE1 EACH TOP; +Robaxin750 MG PO
[2023-06-25 04:33] LABS: Source, Urine Clean Catch
[2023-06-25 04:37] LABS: Bilirubin, Urine Neg (Neg); Blood, Urine Neg (Neg); Glucose Qualitative, Urine Neg (Neg); Ketones, Urine Neg (Neg); Leukocyte Esterase, Urine 1+ (Neg); Nitrite, Urine Neg (Neg); Protein, Urine Neg (Neg); Urobilinogen, Urine NORM (Normal)
[2023-06-25 04:42] LABS: BASOPHILS ABSOLUTE AUTO 0.05 K/mm3 (0.00-0.23); BASOPHILS PERCENT AUTO 1 % (0-2); EOSINOPHILS ABSOLUTE AUTO 0.17 K/mm3 (0.00-0.68); EOSINOPHILS PERCENT AUTO 3 % (0-6); Hematocrit 42.9 % (37.0-53.0); Hemoglobin 15.2 g/dL (13.5-17.5); IMMATURE GRAN ABSOLUTE AUTO 0.04 K/mm3 (0.00-0.10); IMMATURE GRAN PERCENT AUTO 1 % (0-1); LYMPHOCYTES ABSOLUTE AUTO 2.11 K/mm3 (0.84-5.20); LYMPHOCYTES PERCENT AUTO 31 % (21-46); MONOCYTES ABSOLUTE AUTO 0.66 K/mm3 (0.16-1.47); MONOCYTES PERCENT AUTO 10 % (4-13); Mean Corpuscular HGB 31.8 pg (26.0-34.0); Mean Corpuscular HGB Conc 35.4 g/dL (31.5-36.5); Mean Corpuscular Volume 90 fL (80-100); Mean Platelet Volume 9.5 fL (9.1-12.4); NEUTROPHILS ABSOLUTE AUTO 3.78 K/mm3 (1.96-9.15); NEUTROPHILS PERCENT AUTO 56 % (41-73); Platelet Count 228 K/mm3 (150-400); RDW Coefficient Variation 11.9 % (11.7-14.2); RDW Standard Deviation 38.7 fL (35.1-46.3); Red Blood Cell Count 4.78 M/mm3 (4.30-5.90); White Blood Cell Count 6.81 K/mm3 (4.00-11.30)
[2023-06-25 04:51] LABS: Appearance, Urine Clear (Clear); Color, Urine Yellow (P-Yellow)
[2023-06-25 04:53] LABS: Bacteria Not Seen /hpf; Red Blood Cells, Urine Not Seen /hpf (0-2); Squamous Epithelial Cells Few /hpf (Few); White Blood Cells, Urine 0-2 /hpf (0-5)
[2023-06-25 05:03] LABS: Alanine Aminotransfer (ALT/SGP 32 U/L (12-78); Albumin, Blood 3.9 g/dL (3.4-5.0); Alk Phos 51 U/L (50-136); Anion Gap 8 mmol/L (3-11); Aspartate Aminotrans (AST/SGOT 22 U/L (12-37); Bilirubin, Total 0.3 mg/dL (0.1-1.0); Blood Urea Nitrogen 13 mg/dL (8-24); Bun/Creatinine Ratio 15.3 (12.0-20.0); CO2, Blood 28 mmol/L (21-32); Chloride, Blood 111 mmol/L (98-108); Creatinine, Blood 0.85 mg/dL (0.60-1.20); Ethanol (Alcohol), Blood, Med <3 mg/dL; Glomerular Filtration Rate 96 (60-); Glucose, Blood 85 mg/dL (70-99); Potassium, Blood 3.9 mmol/L (3.5-5.5); Sodium, Blood 143 mmol/L (136-145); Total Protein, Blood 7.9 g/dL (6.4-8.2)
[2023-06-25 05:21] LABS: U Amphetamine Screen Not Detected; U Barbituate Screen Not Detected; U Benzodiazapine Screen Not Detected; U Buprenorphine Screen Not Detected; U Cannabinoids Screen Not Detected; U Cocaine Screen Not Detected; U Methadone Screen Not Detected; U Methamphetamine Screen Not Detected; U Opiates Screen Not Detected; U Oxycodone Screen Not Detected; U Phencyclidine Screen Not Detected
[2023-06-25] MEDS ORDERED: Acetaminophen 325 MG TABLET PO PRN (05:35)
[2023-06-25 06:10] LABS: Influenza A, PCR NEGATIVE (NEGATIVE); Influenza B, PCR NEGATIVE (NEGATIVE); Resp Syncytial Virus, PCR NEGATIVE (NEGATIVE); SARS-Cov-2 (COVID-19) PCR, MMC NEGATIVE (NEGATIVE)
[2023-06-25] MEDS ORDERED: Docusate Sodium/Senna 1 Tab PO PRN (08:50)
[2023-06-25] MEDS ORDERED: Polyethylene Glycol 3350 17 gm PO PRN (08:55)
[2023-06-25] MEDS ORDERED: HyDROXyzine HCl 25 MG Tab PO PRN (08:55)
[2023-06-25] MEDS ORDERED: Gabapentin 300 MG Cap PO SCH ×2 (09:00→21:00)
[2023-06-25] MEDS ORDERED: Aspirin 81 MG TabEC PO SCH (09:00)
[2023-06-25] MEDS ORDERED: Multivitamins 1 Tab PO SCH (09:00)
[2023-06-25] MEDS ORDERED: Bisacodyl 5 MG TabEC PO SCH (09:00)
[2023-06-25] MEDS ORDERED: Clopidogrel Bisulfate 75 MG Tab PO SCH (09:00)
[2023-06-25] MEDS ORDERED: Fluticasone 0.05% Nasal Spray SCH (09:00)
[2023-06-25] MEDS ORDERED: Promethazine HCl 25 MG Tab PO PRN ×2 (09:00→11:25)
[2023-06-25] MEDS ORDERED: Methocarbamol 500 MG Tab PO SCH (09:00)
[2023-06-25] MEDS ORDERED: Isosorbide Mononitrate 30 MG TABCR PO SCH (09:00)
[2023-06-25] MEDS ORDERED: Metoprolol Succinate 25 MG TABCR PO SCH (09:00)
[2023-06-25] MEDS ORDERED: Divalproex Sodium 500 MG TABLET.DR PO SCH (09:00)
[2023-06-25] MEDS ORDERED: Atorvastatin 10 MG Tab PO SCH (09:00)
[2023-06-25] MEDS ORDERED: Finasteride 5 MG Tab PO SCH (09:00)
[2023-06-25] MEDS ORDERED: Tamsulosin HCl 0.4 MG Cap PO SCH ×2 (09:00→21:00)
[2023-06-25] MEDS ORDERED: Benztropine Mesylate 1 MG Tab PO SCH (09:00)
[2023-06-25] MEDS ORDERED: Albuterol HFA200 ACT/6.7 GM INH INH PRN (09:15)
[2023-06-25] MEDS ORDERED: Mag Hydrox/AL Hydrox/Simeth 30 ML UDC PO PRN (09:15)
[2023-06-25] MEDS ORDERED: ABILIFY MYCITE15 M2 PO (09:41)
[2023-06-25] MEDS ORDERED: BISA5EC PO (09:48)
[2023-06-25] MEDS ORDERED: DOCUZEN 8.6-501 EACH PO (09:56)
--- NOTE | 2023-06-25 09:56 | NUR ---
PT ADMITTED FROM THE ER, ROOM MITIGATED PRIOR TO HIS ARRIVAL, PT ARRIVED WITH A 1:1 SITTER TO MAINTAIN SAFETY
[2023-06-25] MEDS ORDERED: GABA300 PO (09:59)
[2023-06-25] MEDS ORDERED: GABA100 PO (09:59)
[2023-06-25] MEDS ORDERED: Atarax10 MG PO (10:01)
[2023-06-25] MEDS ORDERED: LOSA25 PO (10:02)
[2023-06-25] MEDS ORDERED: PRAZ2 PO (10:06)
[2023-06-25] MEDS ORDERED: Vitamin D1000 UNI1 PO (10:15)
[2023-06-25] MEDS ORDERED: Cyclobenzaprine5 MG PO (10:16)
[2023-06-25] MEDS ORDERED: PANT40 PO (10:18)
[2023-06-25] MEDS ORDERED: KETO15TC TOP (10:18)
[2023-06-25] MEDS ORDERED: QUET100 PO (10:19)
[2023-06-25] MEDS ORDERED: NALOXONE HCL4 MG (10:21)
[2023-06-25] MEDS ORDERED: NICOTINE LOZENGE2 MG MM (10:22)
[2023-06-25] MEDS ORDERED: XYLIGEL50 ML MM (10:24)
[2023-06-25] MEDS ORDERED: STIOLTO RESPIMAT4 G2 INH (10:26)
--- NOTE | 2023-06-25 10:30 | NUR ---
MED REC. PT MEDCIATIONS RECONSILATION DONE AGAINST HIS [facility]. CARE ONGOING.
[2023-06-25] MEDS ORDERED: Bisacodyl 5 MG TabEC PO PRN (11:20)
[2023-06-25] MEDS ORDERED: HyDROXyzine HCl 10 MG Tab PO PRN (11:25)
[2023-06-25] MEDS ORDERED: Ipratropium/Albuterol SulF 2.5-0.5MG/3 ML Amp INH SCH (11:35)
[2023-06-25] MEDS ORDERED: BIOTENE SALIVA STIMULANT 44.3 ML BOTTLE MM PRN (11:40)
[2023-06-25] MEDS ORDERED: Ipratropium/Albuterol SulF 2.5-0.5MG/3 ML Amp INH PRN (12:50)
[2023-06-25] MEDS ORDERED: Cyclobenzaprine HCl 10 MG Tab PO SCH (14:00)
[2023-06-25] MEDS ORDERED: Gabapentin 100 MG Cap PO SCH (14:00)
[2023-06-25] MEDS ORDERED: Nicotine Polacrilex 2 MG Gum PO PRN (14:05)
[2023-06-25] MEDS ORDERED: Pantoprazole Sodium 40 MG Tab PO SCH (16:30)
[2023-06-25 19:06] VITALS: BP 128/85
--- NOTE | 2023-06-25 19:25 | NUR ---
report received from er, very pleasent pt here for SI so sitter at bedside. pt states he has no bad intentions. admission done and pt treated for back pain. makes needs know.
[2023-06-25] MEDS ORDERED: Divalproex Sodium 500 MG TABCR PO SCH (21:00)
[2023-06-25] MEDS ORDERED: Losartan Potassium 50 MG Tab PO SCH (21:00)
[2023-06-25] MEDS ORDERED: PRAZOSIN HCL PO SCH (21:00)
[2023-06-25] MEDS ORDERED: QUEtiapine Fumarate 100 MG Tab PO SCH (21:00)
[2023-06-25] MEDS ORDERED: Prazosin HCL 5 MG Cap PO SCH (21:00)
[2023-06-26 03:58] VITALS: BP 125/85
[2023-06-26] MEDS ORDERED: Levothyroxine Sodium 0.075 MG Tab PO SCH (06:00)
[2023-06-26 06:01] LABS: BASOPHILS ABSOLUTE AUTO 0.03 K/mm3 (0.00-0.23); BASOPHILS PERCENT AUTO 1 % (0-2); EOSINOPHILS ABSOLUTE AUTO 0.18 K/mm3 (0.00-0.68); EOSINOPHILS PERCENT AUTO 3 % (0-6); Hematocrit 38.9 % (37.0-53.0); Hemoglobin 13.3 g/dL (13.5-17.5); IMMATURE GRAN ABSOLUTE AUTO 0.06 K/mm3 (0.00-0.10); IMMATURE GRAN PERCENT AUTO 1 % (0-1); LYMPHOCYTES ABSOLUTE AUTO 1.92 K/mm3 (0.84-5.20); LYMPHOCYTES PERCENT AUTO 31 % (21-46); MONOCYTES PERCENT AUTO 11 % (4-13); Mean Corpuscular HGB 31.2 pg (26.0-34.0); Mean Corpuscular HGB Conc 34.2 g/dL (31.5-36.5); Mean Corpuscular Volume 91 fL (80-100); Mean Platelet Volume 9.7 fL (9.1-12.4); NEUTROPHILS PERCENT AUTO 54 % (41-73); Platelet Count 196 K/mm3 (150-400); RDW Coefficient Variation 11.9 % (11.7-14.2); RDW Standard Deviation 39.8 fL (35.1-46.3); Red Blood Cell Count 4.26 M/mm3 (4.30-5.90); White Blood Cell Count 6.29 K/mm3 (4.00-11.30)
--- NOTE | 2023-06-26 06:06 | NUR ---
BALL FRINGE MACHINE OPERATOR SUMMARY PT A&O X 4, PLEASANT AND TALKATIVE. HE RECIVED A PHONE CALL FROM THE [facility] WHERE HE LIVES AND STATED THAT HE HEARD THE PERSON ON THE PHONE TELL SOMEONE ELSE TO RECORD THIER PHONE CALL. PT EXPRESSED FEAR FOR HIS SAFETY AND MH ABOUT RETURNING TO THE [facility] HOME. HE WANTS TO BE PLACED IN A NEW LIVING ENVIRONMENT. PT UP AMBULATING INDEPENDENTLY IN THE ROOM. HE REPORTS CHRONIC BACK AND LEG PAIN AND STATES THAT HE DOES NOT FEEL THAT HIS CURRENT PAIN REGIMINE IS SUFFICIENT. HE PLANS TO DISCUSS THIS FURTHER WITH PHYSICIAN TOMORROW. HE REPORTS HIS GABAPENTIN DOSE [facility] DUE TO HIM HAVING AN ATROPHIED KIDNEY. PT REQUESTED THAT I GO THROUGH HIS HOME MED LIST AND COMPARE IT TO OUR EMAR TO MAKE SURE HE IS GETTING EVERYTHING. THIS TASK WAS COMPLETED AND ANY DIFFERENCES WERE EXPLAINED TO PT. PT ALSO C/O OF NAUSEA, PHENERGAN GIVEN WITH GOOD RESULTS. SITTER PRESENT THROUGH THE SHIFT.
[2023-06-26 06:24] LABS: Albumin, Blood 3.3 g/dL (3.4-5.0); Bilirubin, Total 0.4 mg/dL (0.1-1.0); Bun/Creatinine Ratio 13.9 (12.0-20.0); Calcium, Blood 8.7 mg/dL (8.5-10.1); Creatinine, Blood 0.86 mg/dL (0.60-1.20); Globulin, Blood 3.2 g/dL (2.2-4.0); Total Protein, Blood 6.5 g/dL (6.4-8.2)
[2023-06-26 07:30] VITALS: BP 126/64
[2023-06-26] MEDS ORDERED: Lidocaine 4% 1 Patch TOP SCH (09:00)
[2023-06-26] MEDS ORDERED: Loratadine 10 MG Tab PO SCH (09:00)
[2023-06-26] MEDS ORDERED: Aspirin 81 MG Chew PO SCH (09:00)
[2023-06-26] MEDS ORDERED: ARIPiprazole 10 MG Tab PO SCH (09:00)
[2023-06-26] MEDS ORDERED: Losartan Potassium 50 MG Tab PO SCH (09:00)
[2023-06-26] MEDS ORDERED: Enoxaparin 40 MG/0.4 ML SYR SC SCH (09:00)
[2023-06-26] MEDS ORDERED: Cholecalciferol 1000 Unit Tablet (=25MCG) PO SCH (09:00)
[2023-06-26] MEDS ORDERED: Metoprolol Succinate 25 MG TABCR PO SCH (09:00)
[2023-06-26 14:57] VITALS: BP 126/64
--- NOTE | 2023-06-26 15:03 | NUR ---
REPORT RECEIVED A/O X4 VERY PLEASENT PT STATES HE IS DOING WELL WITH NO CHANGE JUST SOME BACK PAIN, SITTER AT BEDSIDE. PLAN FOR [facility] TRANSFER VA TRANSFER HERE REPORT GAVE TO [facility]. PT DCED AT 6904
== END 2023-06-26 15:04 ==
LOC: ER 03:38 → EOR 03:39 → MEDS 03:39 → EOR 03:39 → MEDS 09:18
PROVIDERS: Student in an Organized Health Care Education/Training Program; ADMIT Emergency Medicine
DX: F25.0 Schizoaffective disorder, bipolar type (principal); R45.851 Suicidal ideations; N40.0 Benign prostatic hyperplasia without lower urinary tract symptoms; E11.40 Type 2 diabetes mellitus with diabetic neuropathy, unspecified; J45.909 Unspecified asthma, uncomplicated; J44.9 Chronic obstructive pulmonary disease, unspecified; E03.9 Hypothyroidism, unspecified; I10 Essential (primary) hypertension; M19.90 Unspecified osteoarthritis, unspecified site; F17.210 Nicotine dependence, cigarettes, uncomplicated; Z88.2 Allergy status to sulfonamides; Z88.0 Allergy status to penicillin; Z88.8 Allergy status to other drugs, medicaments and biological substances; G47.33 Obstructive sleep apnea (adult) (pediatric); Z99.89 Dependence on other enabling machines and devices; Z79.899 Other long term (current) drug therapy
CPT/HCPCS: 0241U; 36415; 80053; 80164; 81001; 83735; 85025; 94760; 99285; A9270; G0378; J1650